=== PATIENT | female | born 1965 | race Caucasian/White ===

== ENCOUNTER 2016-11-16 13:00 | Inpatient (IN) ==
[2016-11-16] MEDS ORDERED: Aspirin 325 MG TABLET PO ONE (13:05)
[2016-11-16] MEDS ORDERED: 0.9 % Sodium Chloride 1,000 ML IVC ONE (13:05)
[2016-11-16 13:38] LABS: Eosinophils % 2.7 %; Hematocrit 39.9 % (35.3-44.9); Hemoglobin 12.9 g/dL (11.5-15.4); Immature Granulocytes % 0.5 % (0-4); Mean Corpuscular HGB Conc 32.3 g/dL (31.6-35.5); Mean Corpuscular Hemoglobin 28.4 pg (28.0-33.3); Mean Corpuscular Volume 87.7 fL (83.0-100.0); Mean Platelet Volume 9.8 fL (9.4-12.4); Platelet Count 234 K/mcL (140-400); Red Blood Count 4.55 M/mcL (3.82-4.97); Red Cell Distribution Width 12.6 % (11.5-14.5); Segmented Neutrophils % 47.1 %
[2016-11-16 13:39] LABS: Basophils % 0.7 %; Eosinophils # 0.1 K/mcL (0.0-0.6); Lymphocytes # 1.7 K/mcL (0.6-4.6); Monocytes # 0.3 K/mcL (0.0-1.3); Neutrophils # 1.9 K/mcL (1.6-8.9)
[2016-11-16 13:43] LABS: Prothrombin Time 11.1 Seconds (9.4-12.1)
[2016-11-16 13:46] LABS: Activated Partial Thrombo Time 33.2 Seconds (26.0-36.0)
[2016-11-16 13:49] LABS: BUN/Creatinine Ratio 12 (6-26); Blood Urea Nitrogen 9 mg/dL (7-20); Calcium 9.4 mg/dL (8.6-10.8); Carbon Dioxide 28 mEq/L (19-29); Chloride 108 mEq/L (98-109); Glucose 100 mg/dL (70-99); Osmolality,Calculated 295 (280-300); Sodium 143 mEq/L (136-145); eGFR For African Americans > 60 (> 60); eGFR For Non-African Americans > 60 (> 60)
--- NOTE | 2016-11-16 14:10 | Emergency Department Note ---
Disposition Clinical Impression: Atrial fibrillation with RVR Disposition: Admitted As Inpatient Condition: Good Time of Disposition: 14:11 Arrhythmia/Palpitations HPI - General Chief Complaint: ED Arrhythmia/Palpitations Stated Complaint: A-Fib Time Seen by Provider: 11/16/16 13:05 Source: patient Limitations: no limitations Nursing Notes Reviewed: Yes Vital Signs Reviewed: Yes - History of Present Illness HPI Narrative: 51-year-old female presents with concerns of weakness and palpitations. Patient states she developed tachycardia this morning was seen by her primary care provider and then an urgent care with an EKG which showed age fibrillation with rapid ventricular rate. Patient denied chest pain throughout her symptoms. Denies fever, chills, nausea, vomiting, diarrhea. No changes in her medications. No history of atrial fibrillation before. - Related Data Home Medications Medication Instructions Recorded Confirmed Loratadine [Claritin] 10 mg PO DAILY 10/07/16 11/16/16 Montelukast [Singulair] 10 mg PO HS 10/07/16 11/16/16 Tramadol HCl [Ultram] 50 mg PO TID PRN 10/07/16 11/16/16 Ranitidine HCl [Zantac] 150 mg PO BID 11/16/16 11/16/16 Tizanidine HCl 4 mg PO TID PRN 11/16/16 11/16/16 Allergies Allergy/AdvReac Type Severity Reaction Status Date / Time Penicillins [PCN] Allergy Itching Verified 11/16/16 13:11 All systems ED: reviewed and negative except as stated. Constitutional: Reports: weakness. Denies: fever, chills ENT ED: Denies: ear pain Cardiovascular: Denies: chest pain, palpitations Respiratory: Denies: cough, dyspnea, wheezes Gastrointestinal: Denies: abdominal pain, nausea, vomiting, diarrhea Genitourinary: Denies: urgency, dysuria Musculoskeletal: Denies: back pain, neck pain Neurological: Denies: headache Psychiatric: Denies: anxiety Past Medical History - Past Medical History Attestation: Yes The following information was validated with the patient. Source: patient Medical history: Reports: asthma, other Psychiatric history: Reports: no psych history [employer] history: Reports: non-contributory - Social History Smoking Status: Former smoker Smokeless Tobacco Status: No Alcohol use: Reports: none Drug use: Reports: none Physical Exam General: Alert and in no acute distress Skin: Warm, dry, intact Head: Normocephalic and atraumatic Neck: Supple, trachea midline and no tenderness Cardiovascular: RRR, no murmur, normal perfusion Respiratory: CTAB, no wheezing, cough, or respiratory distress Musculoskeletal: Normal strength, no tenderness, swelling or deformity GI: Soft, nontender, nondistended. Bowel sounds present Neuro: A&O to person, place, time and situation. No focal deficits noted on exam Psychiatric: cooperative and appropriate mood and affect. - General Limitations: no limitations General appearance: alert, in no apparent distress Course Vital Signs Temperature 98.1 F 11/16/16 13:02 Pulse Rate 86 11/16/16 13:02 Respiratory Rate 18 11/16/16 13:02 Blood Pressure 138/86 11/16/16 13:02 O2 Sat by Pulse Oximetry 97 11/16/16 13:02 Temperature 98.2 F 11/16/16 18:42 Pulse Rate 72 11/16/16 18:42 Respiratory Rate 16 11/16/16 18:42 Blood Pressure 143/79 11/16/16 18:42 O2 Sat by Pulse Oximetry 97 11/16/16 20:44 Oxygen Delivery Oxygen Delivery Room Air Arrhythmia/Palpitations - [facility] Narrative Medical decision making narrative: Patient is in a sinus rhythm by the time of her arrival to the emergency department. Repeat EKG shows normal sinus rhythm with a rate of 82. Patient has no concerns or complaints at this time. Patient has an initial negative troponin. On reevaluation the patient developed chest pain emergency department. Her chest pain in conjunction with her age fibrillation with RVR the patient will be admitted to the hospital for further care and evaluation. - Medical Records Medical records reviewed: Yes I reviewed the patient's medical records. - Lab Data Lab results reviewed: Yes I reviewed the patient's lab results. Result diagrams: 11/16/16 13:28 11/16/16 13:28 Lab Results 11/16/16 11/16/16 11/16/16 Range/Units 13:28 13:28 13:28 WBC 4.1 L (4.3-11.1) K/mcL RBC 4.55 (3.82-4.97) M/mcL Hgb 12.9 (11.5-15.4) g/dL Hct 39.9 (35.3-44.9) % MCV 87.7 (83.0-100.0) fL MCH 28.4 (28.0-33.3) pg MCHC 32.3 (31.6-35.5) g/dL RDW 12.6 (11.5-14.5) % Plt Count 234 (140-400) K/mcL MPV 9.8 (9.4-12.4) fL Immature Gran % 0.5 (0-4) % Seg Neutrophils % 47.1 % Lymphocytes % 41.0 % Monocytes % 8.0 % Eosinophils % 2.7 % Basophils % 0.7 % Neutrophils # 1.9 (1.6-8.9) K/mcL Lymphocytes # 1.7 (0.6-4.6) K/mcL Monocytes # 0.3 (0.0-1.3) K/mcL Eosinophils # 0.1 (0.0-0.6) K/mcL Basophils # 0.0 (0.0-0.2) K/mcL PT 11.1 (9.4-12.1) Seconds INR 1.0 APTT 33.2 (26.0-36.0) Seconds D-Dimer 238 (0-500) ng/mLFEU Sodium 143 (136-145) mEq/L Potassium 4.0 (3.5-4.5) mEq/L Chloride 108 (98-109) mEq/L Carbon Dioxide 28 (19-29) mEq/L BUN 9 (7-20) mg/dL Creatinine 0.76 (0.57-1.11) mg/dL Est GFR ( Amer) > 60 (> 60) Est GFR (Non-Af Amer) > 60 (> 60) BUN/Creatinine Ratio 12 (6-26) Glucose 100 H (70-99) mg/dL Calculated Osmolality 295 (280-300) Calcium 9.4 (8.6-10.8) mg/dL Troponin I (0-0.03) ng/mL TSH 1.119 (0.350-4.840) mcIU/mL Urine Color (Yellow) Urine Clarity (Clear) Urine pH (5.0-8.0) pH Units Ur Specific Roy (1.010-1.025) Urine Protein (Neg-Trace) mg/dL Urine Glucose (UA) (Normal) mg/dL Urine Ketones (Negative) mg/dL Urine Blood (Negative) Urine Nitrite (Negative) Urine Bilirubin (Negative) Urine Urobilinogen (Normal) mg/dL Ur Leukocyte Esterase (Negative) Urine Microscopic RBC (0-3) per hpf Urine Microscopic WBC (0-3) per hpf Ur Squamous Epith Cells (None-Few) per lpf Urine Bacteria (None-Few) per hpf Hyaline Casts (None-Few) per lpf Ur Culture Indicated? (NO) 11/16/16 11/16/16 Range/Units 13:28 14:20 WBC (4.3-11.1) K/mcL RBC (3.82-4.97) M/mcL Hgb (11.5-15.4) g/dL Hct (35.3-44.9) % MCV (83.0-100.0) fL MCH (28.0-33.3) pg MCHC (31.6-35.5) g/dL RDW (11.5-14.5) % Plt Count (140-400) K/mcL MPV (9.4-12.4) fL Immature Gran % (0-4) % Seg Neutrophils % % Lymphocytes % % Monocytes % % Eosinophils % % Basophils % % Neutrophils # (1.6-8.9) K/mcL Lymphocytes # (0.6-4.6) K/mcL Monocytes # (0.0-1.3) K/mcL Eosinophils # (0.0-0.6) K/mcL Basophils # (0.0-0.2) K/mcL PT (9.4-12.1) Seconds INR APTT (26.0-36.0) Seconds D-Dimer (0-500) ng/mLFEU Sodium (136-145) mEq/L Potassium (3.5-4.5) mEq/L Chloride (98-109) mEq/L Carbon Dioxide (19-29) mEq/L BUN (7-20) mg/dL Creatinine (0.57-1.11) mg/dL Est GFR ( Amer) (> 60) Est GFR (Non-Af Amer) (> 60) BUN/Creatinine Ratio (6-26) Glucose (70-99) mg/dL Calculated Osmolality (280-300) Calcium (8.6-10.8) mg/dL Troponin I 0.00 (0-0.03) ng/mL TSH (0.350-4.840) mcIU/mL Urine Color Yellow (Yellow) Urine Clarity Clear (Clear) Urine pH 7.5 (5.0-8.0) pH Units Ur Specific Roy 1.014 (1.010-1.025) Urine Protein Negative (Neg-Trace) mg/dL Urine Glucose (UA) Normal (Normal) mg/dL Urine Ketones Negative (Negative) mg/dL Urine Blood Trace H (Negative) Urine Nitrite Negative (Negative) Urine Bilirubin Negative (Negative) Urine Urobilinogen Normal (Normal) mg/dL Ur Leukocyte Esterase Negative (Negative) Urine Microscopic RBC 3-5 H (0-3) per hpf Urine Microscopic WBC 0-3 (0-3) per hpf Ur Squamous Epith Cells Many H (None-Few) per lpf Urine Bacteria None Seen (None-Few) per hpf Hyaline Casts None Seen (None-Few) per lpf Ur Culture Indicated? NO (NO) - Radiology Data Radiology results reviewed: Yes I reviewed the patient's radiology results. - EKG Data EKG attestation: Yes I reviewed and interpreted this EKG. EKG results narrative: ECG - interpreted by ED physician. Rate 82, normal sinus rhythm, no STEMI. QRS 97, QTC 401
[2016-11-16 14:28] LABS: Bilirubin,Urine Negative (Negative); Blood,Urine Trace (Negative); Clarity,Urine Clear (Clear); Color,Urine Yellow (Yellow); Glucose,Urine (UA) Normal (Normal); Ketones,Urine Negative (Negative); Leukocyte Esterase,Urine Negative (Negative); Nitrite,Urine Negative (Negative); PH,Urine 7.5 pH Units (5.0-8.0); Protein,Urine Negative (Neg-Trace); Specific Gravity,Urine 1.014 (1.010-1.025); Urobilinogen,Urine Normal (Normal)
[2016-11-16 14:30] LABS: Bacteria,Urine None Seen per hpf (None-Few); Hyaline Casts,Urine None Seen per lpf (None-Few); Squamous Epithelial Cell,Urine Many per lpf (None-Few); WBC,Urine 0-3 per hpf (0-3)
[2016-11-16 14:49] LABS: Thyroid Stimulating Hormone 1.119 mcIU/mL (0.350-4.840)
[2016-11-16] MEDS ORDERED: Acetaminophen 325 MG TABLET PO PRN (15:51)
[2016-11-16] MEDS ORDERED: Naloxone 0.4 MG/ML INJ IVP PRN (15:51)
--- NOTE | 2016-11-16 15:51 | Internal Med History&Physical ---
Date of Encounter: 11/16/16 Time of Encounter: 15:49 Assessment and Plan (1) Chest pain, rule out acute myocardial infarction Current visit: Yes Status: Acute 51/F WANG : 0 morbidly obese, has ongoing Restless leg syndrome and persistent back pain. Came to ER with new onset of Afib but converted back to Sinus. Patient was about to go home and then started complain of chest pain. plan Admit as observation telemetry cardiac diet and NPO midnight cycle troponin ASA/Statin/BB Lipid panel in AM ECHO if troponin normal and ECHO with in acceptable range then consider NST if troponin abnormal then consider cardiology evaluation. plan discussed with patient. (2) Atrial fibrillation with RVR Current visit: Yes Status: Acute converted back to Sinus and will observe closely. if she gets back to Afib then consider Cardizem drip. likely etiology for Afib is OHS/DEVANTE plan outpatient Sleep study (3) Morbid obesity with BMI of 40.0-44.9, adult Current visit: Yes Status: Acute may get benefit from bariatric surgery as Outpatient. (4) DVT prophylaxis Current visit: Yes Status: Acute heparin Medical decision making: This patient has a [id number] risk of worsening in spite of being on appropriate medication due to underlying DEVANTE/OHS Internal Medicine - H&P: HPI Chief complaint: chest pain Admitted From: Emergency Dept Plans for Post Hospital Care: Home History of present illness: 51/F PCP: Lilinaa Aguilar PMH : Arthritis, Back pain and restless leg syndrome. HPI : Patient has persistent ongoing weakness and palpitations. This morning patient was concern about the same and was evaluated by her primary care provider. Patient was sent home but her symptoms were worsening. Patient was seen by urgent care and EKG was done which was suggestive of her atrial fibrillation with a rapid ventricular rate. Patient was sent to this hospital emergency room for further evaluation. Patient complains of nocturnal snoring along with daytime headaches. Patient's was at bedside and he confirmed the same findings regarding snoring. Course in the emergency room: Patient was evaluated in the emergency room and it was noted that patient was converted back to sinus rhythm. Patient was about to discharge from emergency room to home and at that point patient claims that she has a left-sided chest pain, nonradiating and localized. Reason for admission: Chest pain to rule out ACS. Family history noncontributory Past Med Surg Social Fam HX - Past Medical History Medical history: asthma, other Psychiatric history: no psych history - Social History Smoking Status: Former smoker Smokeless Tobacco Status: No Alcohol use: none Drug use: none Internal Medicine - H&P: Meds Loratadine [Claritin] 10 mg PO DAILY 10/07/16 [History] Montelukast [Singulair] 10 mg PO HS 10/07/16 [History] Tramadol HCl [Ultram] 50 mg PO TID PRN 10/07/16 [History] Ranitidine HCl [Zantac] 150 mg PO BID 11/16/16 [History] Tizanidine HCl 4 mg PO TID PRN 11/16/16 [History] Allergies Penicillins [PCN] Allergy (Verified 11/16/16 13:11) Itching All Systems PM: A 10-system review of systems was performed and is negative for pertinent findings except as documented above in the HPI. - Constitutional Constitutional: no chills, no fever(s), no night sweats - EENT Eyes: no change in vision, no discharge, no pain, no photophobia Ears: no ear discharge, no ear pain, no tinnitus Nose, mouth and throat: no dysphagia, no nasal discharge, no neck pain, no sore throat - Cardiovascular Cardiovascular ROS IM: chest pain, diaphoresis, irregular heart rhythm, palpitations, no dyspnea, no lightheadedness, no syncope - Respiratory Respiratory: no cough, no dyspnea, no wheezing, no excessive phlegm production - Gastrointestinal Gastrointestinal: no abdominal pain, no diarrhea, no hematemesis, no hematochezia, no melena, no nausea, no vomiting - Genitourinary Genitourinary: no change in urinary stream, no dysuria, no flank pain, no hematuria - Musculoskeletal Musculoskeletal ROS IM: no numbness, no tingling - Integumentary Integumentary IM: no rash, no unusual bruising - Neurological Neurological ROS: no confusion, no convulsions, no focal weakness, no numbness, no tingling, no tremor(s) - Hematologic/Lymphatic Hematologic/Lymphatic: no easy bruising - Constitutional Vitals: Temp Pulse Resp BP Pulse Ox 98.1 F 73 16 147/93 99 11/16/16 13:02 11/16/16 14:23 11/16/16 14:23 11/16/16 14:23 11/16/16 14:23 General appearance: Present: mild distress, A&O X 3, morbidly obese, pleasant, answers questions appropriately - Head Head exam: Present: atraumatic, normocephalic - Eye Eye exam: Present: PERRL, conjuntiva pink, sclera anicteric Pupils: Present: PERRL - Neck Neck exam general surgery: Present: supple, trachea midline. Absent: lymphadenopathy - Respiratory Respiratory exam: Present: CTAB. Absent: accessory muscle use, rales, rhonchi, wheezes - Cardiovascular Cardiovascular exam: Present: RRR, +S1, +S2. Absent: diastolic murmur, gallop, rubs, systolic murmur - GI/Abdominal GI/Abdominal exam: Present: normal bowel sounds, soft, no peritoneal signs. Absent: distended, tenderness - Extremities Exam Extremities exam: Present: warm, radial pulses palpable and symetrical. Absent : calf tenderness, cyanotic, pedal edema - Neurological Exam Neurological exam: Present: CN II-XII intact, oriented X3, no focal deficits. Absent: pronater drift, facial droop, speech deficit - Skin Skin exam: Present: dry, intact Internal Med - H&P Results - Labs CBC & Chem 7: 11/16/16 13:28 11/16/16 13:28 Labs: I have discuss results with the emergency room physician.
[2016-11-16] MEDS: *HR* Heparin 5,000 UNIT/ML VIAL SQ SCH (17:55)
[2016-11-16] MEDS: tiZANidine 4 MG TABLET PO PRN ×2 (17:55→23:24)
[2016-11-16] MEDS: traMADol 50 MG TABLET PO PRN ×2 (17:55→23:24)
[2016-11-17] MEDS: *HR* Heparin 5,000 UNIT/ML VIAL SQ SCH ×2 (05:22→17:00)
[2016-11-17 09:17] LABS: Basophils % 0.9 %; Eosinophils # 0.2 K/mcL (0.0-0.6); Eosinophils % 4.1 %; Hematocrit 37.8 % (35.3-44.9); Hemoglobin 12.1 g/dL (11.5-15.4); Immature Granulocytes % 0.2 % (0-4); Lymphocytes # 2.5 K/mcL (0.6-4.6); Lymphocytes % 54.5 %; Mean Corpuscular Hemoglobin 29.1 pg (28.0-33.3); Mean Corpuscular Volume 90.9 fL (83.0-100.0); Mean Platelet Volume 10.1 fL (9.4-12.4); Monocytes # 0.4 K/mcL (0.0-1.3); Monocytes % 7.8 %; Neutrophils # 1.5 K/mcL (1.6-8.9); Platelet Count 221 K/mcL (140-400); Red Blood Count 4.16 M/mcL (3.82-4.97); Segmented Neutrophils % 32.5 %
[2016-11-17 09:33] LABS: Alanine Aminotransferase 23 Units/L (0-55); Albumin 3.7 g/dL (3.5-5.0); Albumin/Globulin Ratio 1.2 (1.1-2.2); Alkaline Phosphatase 68 Units/L (38-126); Aspartate Amino Transferase 26 Units/L (5-34); BUN/Creatinine Ratio 12 (6-26); Bilirubin,Total 0.5 mg/dL (0.2-1.2); Blood Urea Nitrogen 10 mg/dL (7-20); Calcium 9.2 mg/dL (8.6-10.8); Carbon Dioxide 28 mEq/L (19-29); Chloride 107 mEq/L (98-109); Chol/HDL Ratio 3.7 (0-4.9); Cholesterol 166 mg/dL (< 200); Globulin 3.2 g/dL (2.4-3.5); Glucose 92 mg/dL (70-99); HDL Cholesterol 45 mg/dL (40-59); LDL Cholesterol,Calculated 85 mg/dL (0-99); Osmolality,Calculated 291 (280-300); Phosphorous 3.6 mg/dL (2.3-4.7); Potassium 4.2 mEq/L (3.5-4.5); Sodium 141 mEq/L (136-145); Total Protein 6.9 g/dL (6.0-8.3); Triglycerides 181 mg/dL (< 150); eGFR For African Americans > 60 (> 60); eGFR For Non-African Americans > 60 (> 60)
--- NOTE | 2016-11-17 09:44 | Internal Med Progress Note ---
Addendum entered and electronically signed by Neil Campos DO 11/17/16 15:58: Original Note: <Neil Campos - Last Filed: 11/17/16 14:35> Date of Encounter: 11/17/16 Time of Encounter: 09:39 - Assessment and plan (1) Chest pain, rule out acute myocardial infarction Current Visit: Yes Status: Acute Assessment and plan: Patient had a new onset atrial fibrillation with rapid ventricular response, one of the possible cause could be coronary artery disease, patient also developed chest pain, patient has risk factors of morbid obesity, hyperlipidemia , former smoker, no active chest pain this morning, troponin has been negative 3, patient was agreeable to have a stress test and it would be a 2 day test due to her BMI, echo is pending, continue current medications of aspirin, statin, and beta bethany. (2) Hyperlipidemia Current Visit: Yes Status: Acute Assessment and plan: Lipid panel reviewed and continue statin. Qualifiers: Qualified Code(s): E78.5 - Hyperlipidemia, unspecified (3) Atrial fibrillation with RVR Current Visit: Yes Status: Acute Assessment and plan: Patient flipped back to sinus rhythm in the ER, continue rate control with Lopressor 12.5 mg by mouth twice a day, chadsvasc score is 2 for being female and possible undiagnosed hypertension, patient is currently on aspirin, she states that she wants to think today for anticoagulation option, will address that tomorrow, TSH was normal, echo pending, stress test today and tomorrow. (4) Morbid obesity with BMI of 40.0-44.9, adult Current Visit: Yes Status: Acute Assessment and plan: Diet and lifestyle modifications. (5) DVT prophylaxis Current Visit: Yes Status: Acute Assessment and plan: Heparin subcutaneous twice a day. - Subjective Interval history: patient see and examined. Patient states that she does not have activity chest pain, palpitation or shortness of breath at this time. Patient was agreeable to have a stress test this morning, she states that she can run the treadmill. - Constitutional Vitals: Temp Pulse Resp BP Pulse Ox 97.7 F 59 17 103/60 95 11/17/16 07:37 11/17/16 07:37 11/17/16 07:37 11/17/16 07:37 11/17/16 07:37 General appearance: Present: cooperative, A&O X 3, morbidly obese, pleasant, answers questions appropriately - Head Head exam: Present: atraumatic, normocephalic - Eye Eye exam: Present: PERRL, conjuntiva pink, sclera anicteric Pupils: Present: PERRL - Neck Neck exam general surgery: Present: supple, trachea midline. Absent: lymphadenopathy - Respiratory Respiratory exam: Present: CTAB. Absent: accessory muscle use, rales, rhonchi, wheezes - Cardiovascular Cardiovascular exam: Present: RRR, +S1, +S2. Absent: diastolic murmur, gallop, rubs, systolic murmur - GI/Abdominal GI/Abdominal exam: Present: normal bowel sounds, soft, no peritoneal signs. Absent: distended, tenderness - Extremities Exam Extremities exam: Present: warm, radial pulses palpable and symetrical. Absent : calf tenderness, cyanotic, pedal edema - Neurological Exam Neurological exam: Present: CN II-XII intact, oriented X3, no focal deficits. Absent: pronater drift, facial droop, speech deficit - Skin Skin exam: Present: dry, intact Internal Medicine: Result - Labs CBC & Chem 7: 11/17/16 09:05 11/17/16 09:05 Labs: Short CBC 11/17/16 Range/Units 09:05 WBC 4.6 (4.3-11.1) K/mcL Hgb 12.1 (11.5-15.4) g/dL Hct 37.8 (35.3-44.9) % Plt Count 221 (140-400) K/mcL Neutrophils # 1.5 L (1.6-8.9) K/mcL BMP 11/17/16 09:05 Sodium 141 Potassium 4.2 Chloride 107 Carbon Dioxide 28 BUN 10 Creatinine 0.83 Glucose 92 Calcium 9.2 Cardiac Enzymes 11/16/16 11/17/16 Range/Units 19:13 00:49 Troponin I 0.00 0.00 (0-0.03) ng/mL Liver Function 11/17/16 Range/Units 09:05 Total Bilirubin 0.5 (0.2-1.2) mg/dL AST 26 (5-34) Units/L ALT 23 (0-55) Units/L Alkaline Phosphatase 68 (38-126) Units/L Albumin 3.7 (3.5-5.0) g/dL - ABG Interpretation ABG results: PT/INR, D-dimer PT 11.1 Seconds (9.4-12.1) 11/16/16 13:28 D-Dimer 238 ng/mLFEU (0-500) 11/16/16 13:28 Consult Discharge Plan - Plan Referrals: Liliana Cruz, RADIOLOGIC TECHNICIAN [Primary Care Provider] - <Reji Thurston - Last Filed: 11/17/16 18:47> Date of Encounter: 11/17/16 - Assessment and plan (1) Chest pain, rule out acute myocardial infarction Current Visit: Yes Status: Acute (2) Atrial fibrillation with RVR Current Visit: Yes Status: Acute (3) Morbid obesity with BMI of 40.0-44.9, adult Current Visit: Yes Status: Acute (4) DVT prophylaxis Current Visit: Yes Status: Acute - Constitutional Vitals: Temp Pulse Resp BP Pulse Ox 98.0 F 64 16 157/82 95 11/17/16 15:26 11/17/16 15:26 11/17/16 15:26 11/17/16 15:26 11/17/16 15:26 Internal Medicine: Result - Labs CBC & Chem 7: 11/17/16 09:05 11/17/16 09:05 Labs: Short CBC 11/17/16 Range/Units 09:05 WBC 4.6 (4.3-11.1) K/mcL Hgb 12.1 (11.5-15.4) g/dL Hct 37.8 (35.3-44.9) % Plt Count 221 (140-400) K/mcL Neutrophils # 1.5 L (1.6-8.9) K/mcL BMP 11/17/16 09:05 Sodium 141 Potassium 4.2 Chloride 107 Carbon Dioxide 28 BUN 10 Creatinine 0.83 Glucose 92 Calcium 9.2 Cardiac Enzymes 11/16/16 11/17/16 11/17/16 Range/Units 19:13 00:49 09:05 Troponin I 0.00 0.00 0.00 (0-0.03) ng/mL Liver Function 11/17/16 Range/Units 09:05 Total Bilirubin 0.5 (0.2-1.2) mg/dL AST 26 (5-34) Units/L ALT 23 (0-55) Units/L Alkaline Phosphatase 68 (38-126) Units/L Albumin 3.7 (3.5-5.0) g/dL - ABG Interpretation ABG results: PT/INR, D-dimer PT 11.1 Seconds (9.4-12.1) 11/16/16 13:28 D-Dimer 238 ng/mLFEU (0-500) 11/16/16 13:28 - Attending Attestation I examined this patient and my medical decision-making was reviewed with the LODGE OFFICER/PA/Advanced Practice Nurse/Resident Physician. I agree with the documented findings, disposition and treatment plan as described except to the extent set forth below.
[2016-11-17] MEDS ORDERED: Regadenoson 0.4 MG/5 ML SYRINGE IVP ONE (09:51)
[2016-11-17 10:02] LABS: Hemoglobin A1C 5.4 %
[2016-11-17] MEDS: Aspirin Enteric Coated 81 MG Tablet PO SCH (12:43)
[2016-11-17] MEDS: traMADol 50 MG TABLET PO PRN ×2 (12:44→17:00)
--- NOTE | 2016-11-17 14:21 | Electrocardiograph Report ---
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
--- NOTE | 2016-11-17 14:21 | Electrocardiograph Report ---
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
[2016-11-17] MEDS: tiZANidine 4 MG TABLET PO PRN (17:00)
[2016-11-18] MEDS: traMADol 50 MG TABLET PO PRN ×3 (01:23→16:47)
[2016-11-18] MEDS: tiZANidine 4 MG TABLET PO PRN ×3 (01:23→16:47)
[2016-11-18] MEDS: *HR* Heparin 5,000 UNIT/ML VIAL SQ SCH ×2 (05:44→16:47)
[2016-11-18] MEDS: Aspirin Enteric Coated 81 MG Tablet PO SCH (09:15)
--- NOTE | 2016-11-18 12:36 | Nuclear Medicine Stress Report ---
Exercise Nuclear Stress 2 day Name: Linsey Galloway Date of Study: 11/17/2016 Date: 1965 Ht: 67.0 in Medical Record#: [id number] Age: 51 Wt: 260.0 lb Gender: Female Order #: [id number] Location: [facility] Room: [facility] Supervising Provider: Elvis Maher CNP Reading Physician: Rusty Castillo MD, [facility] Ordering Physician: Holly Lauren CNP Primary Care Physician: Liliana Cruz NP Stress Technologist: Jesus Rosa, TUBE TEST TECHNICIAN, CCT Engine Turner: Duoglas Staton Indications: Irregular heartbeat Impression: The exercise capacity was average. Exercise ECG is borderline for ischemia in the inferior leads. Gated LVEF > 70%. Small-medium sized, mild-moderate intensity, predominantly reversible perfusion defect in the mid-apical anterior wall and mid anteroseptum. Findings are consistent with reversible myocardial ischemia. Recommend cardiology consultation. Ordering provider notified of results via [employer] message. History: Hypercholesteremia Stress Test Summary: Stress Test Type: Treadmill Protocol: Patrice Baseline Information: Initial Heart Rate: 68 Blood Pressure: 104/70 Stress Information: Stress Time: 6 min 32 sec Test Terminated Due to (primary): Dyspnea Maximum Blood Pressure: 130/76 Maximum Heart Rate: 146 Percent Maximum Heart Rate Achieved: 86 Double Product: 18,980 METS Reached: 7 Nuclear Summary: SPECT myocardial perfusion imaging using Tc99m Sestamibi given intravenously was performed at rest and following cardiac stress testing. The resting images were obtained following initial dose of 35.3 mCi. Following stress an additional dose of 30.3 mCi was given at peak exercise or 30 seconds post regadenoson infusion. Findings: Stress Note * Resting ECG demonstrated sinus rhythm with 1st degree AV block, incomplete RBBB, poor r-wave progression. * No baseline arrhythmias were noted. * The exercise capacity was average. * Patient had no chest pain during stress. * A couple PVCs were noted during exercise. * Exercise ECG is borderline for ischemia in the inferior leads. Hemodynamic responses * Normal hemodynamic responses to exercise. Study Quality * Study quality is good. Gated EF > 70% * Gated LVEF > 70%. Left Ventricle * The left ventricle is not dilated. * Small-medium sized, mild-moderate intensity, predominantly reversible perfusion defect in the mid-apical anterior wall and mid anteroseptum. Findings are consistent with reversible myocardial ischemia. * All other segmental perfusion normal in rest and stress. TID * No evidence of transient ischemic dilatation. Updated by Rusty Castillo MD, [facility] on 11/18/2016 12:28:57 PM electronically signed on 11/18/2016 12:29:43 PM with status of Final
--- NOTE | 2016-11-18 14:23 | Cardiology Consult Note ---
<Elvis Maher R - Last Filed: 11/18/16 14:57> Date of Encounter: 11/18/16 Time of Encounter: 14:17 Assessment and Plan (1) Abnormal stress test Current Visit: Yes Status: Acute Stress test today shows small-moderate sized, mild-moderate intensity reversible perfusion defect in mid-apical anterior wall and mid anteroseptum consistent with ischemia. Gated EF >70%. Echo preserved EF. Single episode of chest pain in ED, since resolved without recurrence. Troponins negative x 3. [facility] 07/22/14 with mild-moderate 30-40% mid LAD stenosis. Stress test concerning for worsening LAD stenosis. Recommend [facility]. R/B/A discussed. Pt agrees to proceed with [facility]. She has eaten a full lunch, so will plan for [facility] tomorrow. ASA, Statin, BB. (2) PAF (paroxysmal atrial fibrillation) Current Visit: Yes Status: Acute New onset A-Fib RVR on presentation, since converted to SR. Started on low dose BB. Echo shows EF 65%, moderate diastolic dysfunction, mild-moderately dilated left atrium. Reports snoring, suspect DEVANTE. Recommend outpt sleep study. K 4.2, TSH 1.119. Check mag. CHADSVASC score 2 or 3 (Female, CAD, possible HTN). Would recommend jail anticoagulation. Will marshall check NOAC with plans to start anticoagulation after [facility] tomorrow for abnormal stress test as above. (3) CAD (coronary artery disease) Current Visit: Yes Status: Acute Mild-moderate 30-40% mid LAD stenosis on [facility] 06/2014. ASA, Statin, BB. Qualifiers: Coronary Disease-Associated Artery/Lesion type: lummi artery [place] vs. transplanted heart: lummi heart Associated angina: angina presence unspecified Qualified Code(s): I25.10 - Atherosclerotic heart disease of lummi coronary artery without angina pectoris Discussion w patient/family: The assessment and plan as outlined above was discussed with the patient and/or family members who expressed understanding and agreement. All questions were answered. Thank you for involving us in the care of your patient. Please call with any questions. I will discuss all the above with Dr. Meraz and make changes as necessary. History of Present Illness Consult date: 11/18/16 Requesting physician: Reji Thurston Consult reason: A-Fib, abnormal stress test Chief complaint: Palpitations, chest pain History of present illness: Ms. Galloway is a 51 year old female presented to ED from Urgent care for A-Fib with RVR. She reports symptoms of weakness and palpitations started yesterday morning at 6:30AM. While in the ED she had episode of chest pressure that radiated across her chest and became more severe, eventually subsiding on its own. She converted back to sinus rhythm. Troponins negative, stress test and echo were ordered. Echo shows EF 65%, moderate diastolic dysfunction, mild- moderately dilated left atrium. Stress test gated EF >70%, small-moderate sized , mild-moderate intensity reversible perfusion defect in mid-apical anterior wall and mid anteroseptum consistent with ischemia. Pt had a LHC 07/22/14 with mild-moderate 30-40% mid LAD stenosis. Pt currently denies any cardiac symptoms , stating she is feeling better. Past Med Surg Social Fam HX - Past Medical History Medical history: asthma, coronary artery disease, other Psychiatric history: no psych history - Social History Smoking Status: Former smoker Smokeless Tobacco Status: No Alcohol use: none Drug use: none - Family History Mother Living Status: Hx Family Cardiac Disorders: Yes (CHF MD) Hx Family Endocrine Disorder: Yes (type 1 DM) Father Living Status: Hx Family Cardiac Disorders: Yes (triple bypass, MD) Medications and Allergies Loratadine [Claritin] 10 mg PO DAILY 10/07/16 [History] Montelukast [Singulair] 10 mg PO HS 10/07/16 [History] Tramadol HCl [Ultram] 50 mg PO TID PRN 10/07/16 [History] Ranitidine HCl [Zantac] 150 mg PO BID 11/16/16 [History] Tizanidine HCl 4 mg PO TID PRN 11/16/16 [History] Allergies Penicillins [PCN] Allergy (Verified 11/16/16 13:11) Itching All Systems Review: A 10-system review of systems was performed and is negative for pertinent findings except as documented above in the HPI. - Constitutional Constitutional: snoring, weakness - Cardiovascular Cardiovascular: as per HPI, chest pain at rest, irregular heart rhythm, palpitations, rapid heart rate Physical Examination Vital Signs, Last 4 Hours Temp Pulse Resp BP Pulse Ox 11/18/16 10:50 98.3 F 68 16 151/64 94 Vital Signs Temp Pulse Resp BP Pulse Ox 11/18/16 10:50 98.3 F 68 16 151/64 94 11/18/16 07:07 98.1 F 69 14 112/71 94 11/18/16 04:05 98.1 F 68 16 116/63 95 11/18/16 00:20 97.7 F 61 16 120/64 93 11/17/16 19:45 97.6 F 64 15 133/73 97 11/17/16 15:26 98.0 F 64 16 157/82 95 Intake and Output 11/17/16 11/18/16 11/18/16 23:59 07:59 15:59 Intake Total 500 / 500 560 / 560 Output Total 1500 / 1500 930 / 930 1000 / 1000 Balance -1500 / -1500 -430 / -430 -440 / -440 Intake: Oral 500 / 500 560 / 560 Output: Urine 1500 / 1500 930 / 930 1000 / 1000 Other: Meal Lunch Percent of Meal Consumed 95% Weight 118.841 kg Patient Weight 11/18/16 23:59 Weight 118.841 kg General: Conversant, No Apparent Distress HEENT: Atraumatic, Normocephaly, Mucus Membranes Moist Neck: No JVD, Normal carotid pulses Cardiac: Reg Rate and Rhythm, Normal S1 and S2, No Murmur Lungs: Normal Breath Sounds, No Wheeze, Rales, Rhonchi Neuro: Alert and responsive, No focal deficits noted Abdomen: Soft, Non-Tender Skin: No rashes noted on visualized skin Musculoskeletal: No Chest Wall Tenderness Extremities: No Clubbing, No Cyanosis, No Edema, Normal Pulses Results 11/17/16 09:05 11/17/16 09:05 Active Medications Acetaminophen (Tylenol) 650 mg PO Q6HR PRN PRN Reason: Mild Pain (1-3) Stop: 05/18/17 15:52 Last Admin: 11/17/16 17:00 Dose: 650 mg Aspirin (Aspirin Ec) 81 mg PO DAILY ANGY Stop: 05/19/17 09:01 Last Admin: 11/18/16 09:15 Dose: 81 mg Atorvastatin Calcium (Lipitor) 20 mg PO HS ANGY Stop: 05/18/17 21:01 Last Admin: 11/17/16 21:39 Dose: 20 mg Heparin Sodium (Porcine) (Heparin) 5,000 unit SQ Q12HCO [facility] Stop: 05/18/17 18:01 Last Admin: 11/18/16 05:44 Dose: 5,000 unit Metoprolol Tartrate (Lopressor) 12.5 mg PO BID ANGY Stop: 05/18/17 21:01 Last Admin: 11/18/16 09:14 Dose: 12.5 mg Montelukast Sodium (Singulair) 10 mg PO HS [facility] Stop: 05/18/17 21:01 Last Admin: 11/17/16 21:39 Dose: 10 mg Naloxone HCl (Narcan) 0.4 mg IVP Q2MIN PRN PRN Reason: Opioid Reversal Stop: 05/18/17 15:52 Omeprazole (Prilosec) 20 mg PO DAILY@0730 ANGY PRN Reason: Protocol Stop: 05/19/17 07:31 Last Admin: 11/18/16 05:44 Dose: 20 mg Tizanidine HCl (Zanaflex) 4 mg PO TID PRN PRN Reason: Muscle Pain Stop: 05/18/17 15:56 Last Admin: 11/18/16 09:15 Dose: 4 mg Tramadol HCl (Ultram) 50 mg PO TID PRN PRN Reason: mild to moderate pain Stop: 05/18/17 15:56 Last Admin: 11/18/16 09:14 Dose: 50 mg - Imaging and Cardiology Stress Test: report reviewed Echo: report reviewed Cardiac cath: report reviewed - EKG Interpretation EKG results cardiology: personally reviewed (A-Fib RVR, rate 142 SR on subsequent), other (24 hour tele AVG HR 66, SR) Consult Discharge Plan - Plan Referrals: Liilana Cruz, FIELD CANE SCALER [Primary Care Provider] - <Silva Meraz - Last Filed: 11/18/16 16:14> Date of Encounter: 11/18/16 Assessment and Plan Discussion w patient/family: The assessment and plan as outlined above was discussed with the patient and/or family members who expressed understanding and agreement. All questions were answered. Thank you for involving us in the care of your patient. Please call with any questions. History of Present Illness History of present illness: Ms. Galloway is a 51 year old female All Systems Review: A 10-system review of systems was performed and is negative for pertinent findings except as documented above in the HPI. Physical Examination Vital Signs, Last 4 Hours Temp Pulse Resp BP Pulse Ox 11/18/16 15:33 98.8 F 68 16 135/48 95 Results 11/17/16 09:05 11/17/16 09:05 - Attending Attestation I examined this patient and my medical decision-making was reviewed with the RN SUPPORT SERVICES/PA/Advanced Practice Nurse/Resident Physician. I agree with the documented findings, disposition and treatment plan. Ms. Galloway presented with palpitations but had an episode of chest pressure in ER. Was found to be in AF RVR and has since converted to NSR started on BB. Echo demonstrates normal LV/RV function. Suspect DEVANTE as a cause - consider outpatient sleep study. Elevated CHADSVASC score - anticoagulation would be recommened. However, she also had a stress test today demonstrating mild to moderate intensity reversible defect in the LAD territory. She had a cath in 2014 demonstrating 30-40% mLAD disease. We have recommended pursuing a LHC tomorrow (ate a full lunch) and will decide upon anticoagulation for AF after results return. The R/B/A of LHC were discussed. Patient expressed understanding and agreement to proceed.
--- NOTE | 2016-11-18 15:59 | Internal Med Progress Note ---
<Too Waters - Last Filed: 11/18/16 15:57> Date of Encounter: 11/18/16 Time of Encounter: 10:10 - Assessment and plan (1) Chest pain, rule out acute myocardial infarction Current Visit: Yes Status: Acute Assessment and plan: Patient had a new onset atrial fibrillation with rapid ventricular response, one of the possible cause could be coronary artery disease, patient also developed chest pain, patient has risk factors of morbid obesity, hyperlipidemia , and being a former smoker. Troponin has been negative 3. Patient had stress test performed that showed reversible ischemia. Cardiology has been consulted due to concerning stress findings Plan for cardiac catheterization to further evaluate reversible ischemia Continue aspirin Continue atorvastatin Continue metoprolol tartrate (2) Atrial fibrillation with RVR Current Visit: Yes Status: Acute Assessment and plan: Patient flipped back to sinus rhythm in the ER. CHADVASC score is 2 for being female and possible hypertension, patient is currently on aspirin, she states that she wants to think today for anticoagulation option, will address that tomorrow, TSH was normal, echo pending. Stress as performed showed reversible ischemia. continue rate control with Lopressor 12.5 mg by mouth twice a day (3) Hyperlipidemia Current Visit: Yes Status: Acute Assessment and plan: Lipid panel reviewed and continue atorvastatin 20 mg by mouth at bedtime Qualifiers: Qualified Code(s): E78.5 - Hyperlipidemia, unspecified (4) Morbid obesity with BMI of 40.0-44.9, adult Current Visit: Yes Status: Acute (5) DVT prophylaxis Current Visit: Yes Status: Acute Assessment and plan: 5000 units Heparin subcutaneous twice a day. - Subjective Interval history: Patient seen and examined today post stress test. She is comfortable with no concerns/complaints at this time. Is slightly anxious regarding results of stress test. - Constitutional Vitals: Temp Pulse Resp BP Pulse Ox 98.8 F 68 16 135/48 95 11/18/16 15:33 11/18/16 15:33 11/18/16 15:33 11/18/16 15:33 11/18/16 15:33 General appearance: Present: cooperative, A&O X 3, morbidly obese, pleasant, answers questions appropriately Exam: General: Cooperative, pleasant, no acute distress, alert and oriented 3, answers questions appropriately HEENT: Normocephalic, atraumatic, neck supple, trachea midline, Conjunctiva pink , sclera anicteric, EOMI Respiratory: No accessory muscle usage, clear to auscultation bilaterally, no wheezes/rhonchi/rales appreciated Cardiovascular: Regular rate and rhythm, S1 and S2 present, no murmurs/rubs/ gallops/clicks appreciated GI/abdominal: Nondistended, nontender, soft, normal bowel sounds, no peritoneal signs Extremities: No calf tenderness, noncyanotic, no pedal edema appreciated, warm, lower extremity pulses palpable and symmetrical Neurological: Alert and oriented 3, no facial droop, no focal deficits Skin: Dry, intact, normal color Internal Medicine: Result - Labs CBC & Chem 7: 11/17/16 09:05 11/17/16 09:05 - ABG Interpretation ABG results: PT/INR, D-dimer PT 11.1 Seconds (9.4-12.1) 11/16/16 13:28 D-Dimer 238 ng/mLFEU (0-500) 11/16/16 13:28 Consult Discharge Plan - Plan Referrals: Liliana Cruz, SSAS DEVELOPER [Primary Care Provider] - <Reji Thurston - Last Filed: 11/18/16 17:23> Date of Encounter: 11/18/16 - Assessment and plan (1) Chest pain, rule out acute myocardial infarction Current Visit: Yes Status: Acute (2) Atrial fibrillation with RVR Current Visit: Yes Status: Acute (3) Morbid obesity with BMI of 40.0-44.9, adult Current Visit: Yes Status: Acute (4) DVT prophylaxis Current Visit: Yes Status: Acute - Constitutional Vitals: Temp Pulse Resp BP Pulse Ox 98.8 F 68 16 135/48 95 11/18/16 15:33 11/18/16 15:33 11/18/16 15:33 11/18/16 15:33 11/18/16 15:33 Internal Medicine: Result - Labs CBC & Chem 7: 11/17/16 09:05 11/17/16 09:05 - ABG Interpretation ABG results: PT/INR, D-dimer PT 11.1 Seconds (9.4-12.1) 11/16/16 13:28 D-Dimer 238 ng/mLFEU (0-500) 11/16/16 13:28 - Attending Attestation I examined this patient and my medical decision-making was reviewed with the FLOWERS SALESPERSON/PA/Advanced Practice Nurse/Resident Physician. I agree with the documented findings, disposition and treatment plan as described except to the extent set forth below. Patient's stress test is positive. She will be able going for cardiac catheterization tomorrow. Patient needs to stay in hospital and will change status as inpatient.
[2016-11-19] MEDS: traMADol 50 MG TABLET PO PRN ×3 (04:13→16:48)
[2016-11-19 04:29] LABS: Basophils % 0.3 %; Eosinophils # 0.2 K/mcL (0.0-0.6); Eosinophils % 2.4 %; Hematocrit 35.8 % (35.3-44.9); Hemoglobin 11.7 g/dL (11.5-15.4); Immature Granulocytes % 0.5 % (0-4); Lymphocytes # 2.2 K/mcL (0.6-4.6); Lymphocytes % 25.7 %; Mean Corpuscular HGB Conc 32.7 g/dL (31.6-35.5); Mean Corpuscular Hemoglobin 29.3 pg (28.0-33.3); Mean Corpuscular Volume 89.5 fL (83.0-100.0); Mean Platelet Volume 10.5 fL (9.4-12.4); Monocytes # 0.6 K/mcL (0.0-1.3); Monocytes % 6.7 %; Neutrophils # 5.5 K/mcL (1.6-8.9); Platelet Count 225 K/mcL (140-400); Red Cell Distribution Width 12.8 % (11.5-14.5); Segmented Neutrophils % 64.4 %
[2016-11-19 04:44] LABS: BUN/Creatinine Ratio 13 (6-26); Blood Urea Nitrogen 10 mg/dL (7-20); Carbon Dioxide 28 mEq/L (19-29); Chloride 105 mEq/L (98-109); Glucose 103 mg/dL (70-99); Osmolality,Calculated 291 (280-300); Potassium 3.9 mEq/L (3.5-4.5); Sodium 141 mEq/L (136-145); eGFR For African Americans > 60 (> 60); eGFR For Non-African Americans > 60 (> 60)
[2016-11-19] MEDS: tiZANidine 4 MG TABLET PO PRN ×3 (05:31→16:49)
[2016-11-19] MEDS: *HR* Heparin 5,000 UNIT/ML VIAL SQ SCH ×2 (05:31→18:29)
--- NOTE | 2016-11-19 07:26 | Internal Med Progress Note ---
<Too Waters - Last Filed: 11/19/16 11:49> Date of Encounter: 11/19/16 Time of Encounter: 07:05 - Assessment and plan (1) Chest pain, rule out acute myocardial infarction Current Visit: Yes Status: Acute Assessment and plan: Patient had a new onset atrial fibrillation with rapid ventricular response, one of the possible cause could be coronary artery disease, patient also developed chest pain, patient has risk factors of morbid obesity, hyperlipidemia , and being a former smoker. Troponin has been negative 3. Patient had stress test performed that showed reversible ischemia. Cardiology has been consulted due to concerning stress findings Plan for cardiac catheterization to further evaluate reversible ischemia Continue aspirin, 81 mg daily Continue atorvastatin, 20 mg daily Continue metoprolol tartrate, 12.5 mg twice a day (2) Atrial fibrillation with RVR Current Visit: Yes Status: Acute Assessment and plan: Patient flipped back to sinus rhythm in the ER. CHADVASC score is 1 for being female, patient is currently on aspirin. TSH was normal, echo pending. Stress as performed showed reversible ischemia. continue rate control with Lopressor 12.5 mg by mouth twice a day Patient will need to remain on by mouth aspirin going forward due to CAD (3) Hyperlipidemia Current Visit: Yes Status: Acute Assessment and plan: Lipid panel reviewed and continue atorvastatin 20 mg by mouth at bedtime Qualifiers: Hyperlipidemia type: unspecified Qualified Code(s): E78.5 - Hyperlipidemia , unspecified (4) Morbid obesity with BMI of 40.0-44.9, adult Current Visit: Yes Status: Acute Assessment and plan: Diet and lifestyle modifications. (5) DVT prophylaxis Current Visit: Yes Status: Acute Assessment and plan: 5000 units Heparin subcutaneous twice a day. - Subjective Interval history: Patient found to have abnormal stress test, with reversible ischemia seen. Scheduled for cardiac catheterization later today. She is comfortable this morning without immediate concerns/complaints. She has no complaint of chest pain, shortness of breath, diaphoresis, nausea or vomiting. - Constitutional Vitals: Temp Pulse Resp BP Pulse Ox 98.5 F 70 15 126/72 91 11/19/16 06:34 11/19/16 06:34 11/19/16 06:34 11/19/16 06:34 11/19/16 06:34 General appearance: Present: cooperative, A&O X 3, morbidly obese, pleasant, answers questions appropriately Exam: General: Cooperative, pleasant, no acute distress, alert and oriented 3, answers questions appropriately HEENT: Normocephalic, atraumatic, neck supple, trachea midline, Conjunctiva pink , sclera anicteric Respiratory: No accessory muscle usage, clear to auscultation bilaterally, no wheezes/rhonchi/rales appreciated Cardiovascular: Regular rate and rhythm, S1 and S2 present, no murmurs/rubs/ gallops/clicks appreciated GI/abdominal: Nondistended, nontender, soft, normal bowel sounds, no peritoneal signs Extremities: No calf tenderness, noncyanotic, no pedal edema appreciated, warm, lower extremity pulses palpable and symmetrical Neurological: Alert and oriented 3, no facial droop, no focal deficits Skin: Dry, intact, normal color Internal Medicine: Result - Labs CBC & Chem 7: 11/19/16 04:10 11/19/16 04:10 Labs: Short CBC 11/19/16 Range/Units 04:10 WBC 8.6 D (4.3-11.1) K/mcL Hgb 11.7 (11.5-15.4) g/dL Hct 35.8 (35.3-44.9) % Plt Count 225 (140-400) K/mcL Neutrophils # 5.5 (1.6-8.9) K/mcL BMP 11/19/16 04:10 Sodium 141 Potassium 3.9 Chloride 105 Carbon Dioxide 28 BUN 10 Creatinine 0.79 Glucose 103 H Calcium 9.0 - ABG Interpretation ABG results: PT/INR, D-dimer PT 11.1 Seconds (9.4-12.1) 11/16/16 13:28 D-Dimer 238 ng/mLFEU (0-500) 11/16/16 13:28 Consult Discharge Plan - Plan Referrals: Liliana Cruz, RESERVATIONS MANAGER [Primary Care Provider] - <Reji Thurston - Last Filed: 11/19/16 16:22> Date of Encounter: 11/19/16 - Assessment and plan (1) Chest pain, rule out acute myocardial infarction Current Visit: Yes Status: Acute (2) Atrial fibrillation with RVR Current Visit: Yes Status: Acute (3) Morbid obesity with BMI of 40.0-44.9, adult Current Visit: Yes Status: Acute (4) DVT prophylaxis Current Visit: Yes Status: Acute - Constitutional Vitals: Temp Pulse Resp BP Pulse Ox 98.1 F 63 18 92/57 96 11/19/16 15:40 11/19/16 15:40 11/19/16 15:40 11/19/16 15:40 11/19/16 15:40 Internal Medicine: Result - Labs CBC & Chem 7: 11/19/16 04:10 11/19/16 04:10 Labs: Short CBC 11/19/16 Range/Units 04:10 WBC 8.6 D (4.3-11.1) K/mcL Hgb 11.7 (11.5-15.4) g/dL Hct 35.8 (35.3-44.9) % Plt Count 225 (140-400) K/mcL Neutrophils # 5.5 (1.6-8.9) K/mcL BMP 11/19/16 04:10 Sodium 141 Potassium 3.9 Chloride 105 Carbon Dioxide 28 BUN 10 Creatinine 0.79 Glucose 103 H Calcium 9.0 - ABG Interpretation ABG results: PT/INR, D-dimer PT 11.1 Seconds (9.4-12.1) 11/16/16 13:28 D-Dimer 238 ng/mLFEU (0-500) 11/16/16 13:28 - Attending Attestation I examined this patient and my medical decision-making was reviewed with the IMPREGNATOR HELPER/PA/Advanced Practice Nurse/Resident Physician. I agree with the documented findings, disposition and treatment plan as described except to the extent set forth below. Cardiac catheterization did not reveal any major blockages. Novel anticoagulation for her paroxysmal atrial fibrillation. Home tomorrow.
[2016-11-19] MEDS: Aspirin Enteric Coated 81 MG Tablet PO SCH (08:20)
[2016-11-19] MEDS: Sennosides/Docusate Sodium TABLET PO PRN ×2 (08:22→16:48)
[2016-11-19] MEDS ORDERED: *HR* Midazolam HCl 2 MG/2 ML VIAL ONE ×2 (10:31→11:32)
[2016-11-19] MEDS ORDERED: Heparin 1,000 UNITS/500 mL NS 500 ML ONE (10:32)
[2016-11-19] MEDS ORDERED: *HR* FentaNYL (PF) 100 MCG/2 ML VIAL ONE (10:32)
[2016-11-19] MEDS ORDERED: 0.9 % Sodium Chloride 2,000 ML ONE (10:32)
[2016-11-19] MEDS ORDERED: Verapamil 5 MG/2 ML VIAL ONE (10:32)
[2016-11-19] MEDS ORDERED: *HR* Heparin 10,000 UNIT/10 ML VIAL ONE (10:32)
[2016-11-19] MEDS ORDERED: Nitroglycerin 1,000 MCG/10 ML VIAL IV ONE (10:33)
--- NOTE | 2016-11-19 10:56 | Pre-Sedation Evaluation ---
Pre-sedation evaluation - Pre-sedation checklist Date of procedure: 11/19/16 Recent Vitals: Last Vital Signs Temp 98.5 F 11/19/16 06:34 Pulse 70 11/19/16 06:34 Resp 15 11/19/16 06:34 BP 126/72 11/19/16 06:34 Pulse Ox 91 11/19/16 06:34 H&P (including ROS) documented in medical record: Yes Previous reaction to sedatives/anesthetics: No Dietary Status: NPO after Midnight Airway Assessment: Patient can open mouth completely, TMJ function normal, Micrognathia (under-bite, receding chin) absent, Neck with adequate range of motion Dentition: No loose teeth or bridges Possible difficult airway: Yes If Yes;: Morbid obesity ASA Classification *see protocol: CLASS II-Mild systemic disease Plan of Care: Pt appropriate candidate for procedure/moderate/conscious sedation , Risks/benefits of procedure/sedation discussed w/ patient/family
[2016-11-19] MEDS ORDERED: *HR* Adenosine 6 MG/2 ML VIAL IVP ONE (11:28)
--- NOTE | 2016-11-19 11:53 | Invasive Diagnostic Lab Proc ---
Name: Linsey Galloway Date of Study: 11/19/2016 Date: 1965 Ht: 66.9in Medical Record#: [id number] Age: 51 Wt: 263.67lb Gender: Female BSA: 2.27 Order #: [id number] BMI: 41.38 Physicians Procedure Physician: Valeri Guerrier MD, [facility] Referring MD: Referring MD: Staff Name Position Time In Sites, Fidelia RT (R) Monitor 10:45 AM Eva Rodarte RT (R) Scrub 10:45 AM Cathy Bobby RN Separator Tender 10:45 AM Indications Indication Abnormal Test - Stress Procedures Performed Procedure L HRT ARTERY/VENTRICLE ANGIO IV Doppler BLD Flow 1st Vessel Pre-Procedure Checklist Informed consent is complete signed and on chart. H\\T\\P is on chart. ID band is on and ID verified with patient. Patient NPO for procedure The procedure was described for the patient and questions were answered. Blood Pressure: 128/73 ECG is on chart. Rhythm: NSR Plan of Care Patient will tolerate the procedure without complications. Adequate level of comfort will be maintained. Hemodynamics will remain stable Patient will recover from procedure without complications. Respiratory function will be maintained. Cardiac rhythm will remain stable. Patient temperature will be maintained. Patient and/or family have verbalized understanding of the procedure. Patient Education Chief Complaint/Reason for Test: Cardiac Cath Developmental Category: Adult (18-64 years) Developmentally Appropriate for Age: Yes Learning Barriers: None Education Needs: Procedure Education Method: Verbal Information Taught: Cardiac Cath Educational Evaluation: Able to repeat information Intravenous Access Time IV Size Location DC'd Fluid/Drip Rate Units RN 10:33 AM 20g 1 1/4" Patent On Arrival Lt Hand Allergies Penicillins Vital Signs Time BP (mmHg) HR (bpm) O2 Sat. RR (bpm) LOC 11:04 AM 128 / 73 64 95 % 16 5 = Fully awake and oriented or at pre-proc level 11:01 AM 125 / 75 64 97 % 11:06 AM 128 / 73 65 97 % 13 11:11 AM 114 / 67 59 96 % 16 11:16 AM 123 / 60 72 96 % 16 11:21 AM 108 / 61 71 94 % 12 11:26 AM 120 / 68 68 96 % 24 11:31 AM 117 / 75 70 97 % 13 11:36 AM 119 / 68 63 97 % 24 11:41 AM 116 / 75 66 99 % 15 Procedural Medications Time Medication Dose Units Method Given By 11:03 AM Oxygen 2 L/min nasal cannula Cathy Bobby RN 11:04 AM Versed 2 mg Intravenous Cathy Bobby RN 11:04 AM Fentanyl 50 mcg Intravenous Cathy Bobby RN 11:11 AM Lidocaine 2% 0.5 ml Subcutaneous Valeri Guerrier MD, [facility] 11:13 AM Heparin 4000 units Nitroglycerin 200 mcg Verapamil 2.5 mg Intraarterial Valeri Guerrier MD, [facility] 11:31 AM Fentanyl 25 mcg Intravenous Cathy Bobby RN 11:32 AM Versed 1 mg Intravenous Cathy Bobby RN 11:37 AM Adenosine 360 mcg Intracoronary Valeri Guerrier MD, [facility] 11:38 AM Adenosine 400 mcg Intracoronary Valeri Guerrier MD, [facility] ASA Classification: CLASS II- Mild systemic disease (i.e. well-controlled diabetes, hypertension, asthma, cigarette smoking) Hollis Score Preprocedure Postprocedure Activity 2- Moves 4 extremities sustained head lift Activity 2- Moves 4 extremities sustained head lift Circulation 2- SBP +/= 20 points of pre-anesthetic level Circulation 2- SBP +/= 20 points of pre-anesthetic level Consciousness 2- Awake and alert oriented x 3 Consciousness 2- Awake and alert oriented x 3 O2 Saturation 2- Able to maintain O2 satruation of 92% on room air O2 Saturation 2- Able to maintain O2 satruation of 92% on room air Respiratory 2- Able to deep breathe and cough well Respiratory 2- Able to deep breathe and cough well Total Score 10 Total Score 10 Contrast Agent: Isovue Diagnostic Contrast: 72 ml Total Contrast: 72 ml Fluoro Dose: 583 mGy Activated Clotting Time Time Seconds to Clot 11:33 AM 241 Procedure Log Time Note Enter By 10:35 AM CathStat 10:35 AM Case Start 10:45 AM Pt arrived to analytical lab technician 2 at 10:45 [email or web address] 10:45 AM Fidelia Li RT (R) Position: Monitor Time in: 10:45 [email or web address] 10:45 AM Eva Rodarte RT (R) Position: Scrub Time in: 10:45 [email or web address] 10:45 AM Patient charges- Angio tray pack, Navilyst 3mm J, Pulse Oximetry and ACIST tubing and transducer [email or web address] 10:45 AM Cathy Bobby RN Position: Separator Tender Time in: 10:45 [email or web address] 10:45 AM Case Delayed No [email or web address] 10:45 AM Physician arrived 10:45 [email or web address] 10:45 AM Meet and greet completed [email or web address] 10:45 AM Sign in performed according to hospital policy. [email or web address] 10:45 AM Procedure start 10:45 [email or web address] 10:45 AM Clinical Presentation: Stable angina [email or web address] 11: AM Vitals capture started with the following parameters, Patient=Adult, Interval=5 min, Initial Cxbhbhic=385 mmHg, Deflation Rate=5 mmHg, Cuff placed on Right Arm 11: AM HR=64 bpm, FJMJ=949/75 mmhg, SpO2=97.0 % 11:03 AM Time: 11:03 Oxygen on at 2 L/min per nasal cannula by Cathy Bobby RN [facility] :04 AM Time: 11:04 Versed 2 mg Intravenous Given by Cathy Bobby RN [facility] : AM Time: 11:04 Fentanyl 50 mcg Intravenous Given by Cathy Bobby RN [facility] 11:04 AM Time: 11:04 Patient comfortable and pain free: Yes [email or web address] AM Time: 11:04LOC: 5 = Fully awake and oriented or at pre-proc level [email or web address] 11:04 AM Recorded ECG: HR=63 Condition=Condition 1 11:06 AM HR=65 bpm, TPKA=948/73 mmhg, SpO2=97.0 %, Resp=13 B/min 11:08 AM Time out performed according to hospital policy [email or web address]10 AM Recorded ECG: HR=61 Condition=Condition 1 11:10 AM Pressure channel 1 zeroed. 11:11 AM Time: 11:11 0.5 ml Lidocaine 2% to right radial Subcutaneous Given by Valeri Guerrier MD, [facility] tsites 11:11 AM HR=59 bpm, XWOC=036/67 mmhg, SpO2=96.0 %, Resp=16 B/min 11:13 AM Access obtained by percutaneous puncture. 6Fr 10cm Terumo Glidesheath sheath placed in right Radial artery. [id number] tsites 11:13 AM Time: 11:13 Patient given 4,000 units Heparin, 200 mcg Nitroglycerin, and 2.5 mg Verapamil Intraarterial by Valeri Guerrier MD, [facility] tsites 11:16 AM HR=72 bpm, QDZQ=052/60 mmhg, SpO2=96.0 %, Resp=16 B/min 11:17 AM 5Fr FR5 catheter inserted over the wire [id number] tsites 11:17 AM 0.035 260cm Navilyst 3mmJ wire [id number] tsites 11:18 AM RCA angiography performed in multiple views. tsites 11:18 AM Recorded Pressure: Ao, HR=72, Condition=Condition 1 (Aorta) Ao 60/46/54 11:18 AM wire reinserted catheter removed tsites 11:19 AM 5Fr FL3.5 catheter inserted over the wire [id number] tsites 11:19 AM LCA angiography performed in multiple views. tsites 11:20 AM Recorded Pressure: Ao, HR=74, Condition=Condition 1 (Aorta) Ao 110/88/99 11:21 AM HR=71 bpm, LEMK=846/61 mmhg, SpO2=94.0 %, Resp=12 B/min 11:21 AM wire reinserted catheter removed tsites 11:22 AM 5Fr Pigtail catheter inserted over the wire [facility] tsites 11:22 AM Catheter selectively placed in left ventricle tsites 11:22 AM Bolus angiogram of left Ventricle complete: 8 ml/sec for a total of 24 mls tsites 11:23 AM Pressure channel 1 zeroed. 11:23 AM Recorded Pressure: LV, HR=60, Condition=Condition 1 (Left Ventricle) LV 93/19/19 11:24 AM Recorded Pressure: LV, Ao, HR=69, Condition=Condition 1 (Left Ventricle) LV 99/27/38, (Aorta) Ao 90/59/77 11:26 AM HR=68 bpm, UKLK=702/68 mmhg, SpO2=96.0 %, Resp=24 B/min 11:31 AM 6Fr XB LAD 3.5 [place] Bright-Tip guide catheter was used to cannulate the PCI vessel successfully. reused? No tsites 11:31 AM Inflation device was opened. tsites 11:31 AM Time: 11:31 Fentanyl 25 mcg Intravenous Given by Cathy Bobby RN tsites 11:31 AM HR=70 bpm, EZUQ=811/75 mmhg, SpO2=97 %, Resp=13 B/min 11:32 AM Time: 11:32 Versed 1 mg Intravenous Given by Cathy Bobby RN tsites 11:33 AM [place] pressure wire advanced to target lesion. tsites 11:33 AM At 11:33 the ACT was 241 seconds. tsites 11:35 AM Recorded Pressure: Ao, HR=68, Condition=Condition 1 (Aorta) Ao 99/42/66 11:36 AM HR=63 bpm, LQQJ=402/68 mmhg, SpO2=97 %, Resp=24 B/min 11:37 AM [ Start FFR sample ] 11:37 AM Time: 11:37 Adenosine 360 mcg administered Intracoronary by Valeri Guerrier MD, FAC tsites 11:37 AM FFR Measurement: 0.86 tsites 11:38 AM Time: 11:38 Adenosine 400 mcg administered Intracoronary by Valeri Gurerier MD, FACC tsites 11:39 AM FFR Measurement: 0.85 tsites 11:39 AM Flow Wire removed intact tsites 11:39 AM Guide catheter removed intact. tsites 11:39 AM Procedure completed at 11:39 tsites 11:40 AM Sign out completed: Radiation Dose 583 mGy Fluoro Time: 4.5 Isovue 370 - 500ml contrast 72 ml given by Valeri Guerrier MD, [facility]. Complications: NoneCardiac Rehab Consult needed: NoConfirmed administered medications: Yes tsites 11:40 AM Isovue 370 - 500ml,1 Bottle(s) used. tsites 11:40 AM Arterial sheath pulled, Vasc Band closure device used and was Successful S/N. tsites 11:40 AM 10 ml air in Vasc Band. tsites 11:40 AM Post ECG NSR tsites 11:40 AM Post Blood Pressure 119/68 tsites 11:41 AM 11:41 Post Pulses Rt Radial 1+ tsites 11:41 AM Information taught Cardiac Cath and Vasc Band tsites 11:41 AM Education needs Procedure, Plan of Care, and Responsibilities of Patient in Care tsites 11:41 AM Learning barriers :None tsites 11:41 AM Education Methods Verbal tsites 11:41 AM Education evaluation Able to repeat information tsites 11:41 AM Site status No bleeding/hematoma - Rt Wrist as reported by Eva Rodarte RT (R) at 11:41 tsites 11:41 AM HR=66 bpm, DNTU=516/75 mmhg, SpO2=99.0 %, Resp=15 B/min 11:44 AM Report given to delia BELL Pt taken to 3B Room #14. 11:43 tsites 11:44 AM Delay to floor No tsites 11:45 AM Patient out of room: 11:45 tsites 11:45 AM Family placed in consult room. tsites 11:47 AM Coronary Dominance: right tsites 11:47 AM Lesion found in Proximal LAD. Pre Stenosis: 50 Pre WANG Flow: tsites 11:47 AM Proximal Left Anterior Descending Coronary Artery with 50% stenosis. If graft is supplying this territory, 0 % stenosis. tsites Complications Complication None Hemodynamics Pressures Site Systolic/A Wave Diastolic/V Wave Mean AO 60 46 54 AO 110 88 99 LV 93 19 19 LV 99 27 38 AO 90 59 77 AO 99 42 66 Post Procedure Information Blood Pressure: 119/68 mmHg Rhythm: NSR Post procedural instructions were given Closure Device Time Device Success/Fail 11/19/2016 11:46:00 AM Mechanical Compression Successful Site Checks Time Location Status Staff Sheath In? Note 11:41 AM Rt Wrist No bleeding/hematoma Eva Rodarte RT (R) Pulses Time Site Pre-Procedure Post-Procedure Note 11/19/2016 10:33:00 AM Bilateral DP \\T\\ PT 2+ 11:41:00 AM Rt Radial 1+ Updated by Fidelia Li RT (R) on 11/19/2016 11:48:35 AM Fidelia Li RT electronically signed on 11/19/2016 11:48:57 AM with status of Final
--- NOTE | 2016-11-19 12:30 | Event Note ---
Date of Encounter: 11/19/16 Time of Encounter: 12:28 - Cardiology Event Note LHC without intervention. LAD disease unchanged--30-40% mid. Flow wired, not significant. Continue ASA, Statin, BB. If regards to PAF, maintaining SR. [place] checked xarelto $0/month, pt agrees to Xarelto. Follow-up as outpt in 2-3 weeks. Will coordinate. Cardiology signing off. Reconsult PRN.
--- NOTE | 2016-11-19 15:33 | Invasive Diagnostic Lab ---
Name: Linsey Galloway Date of Study: 11/19/2016 Date: 1965 Ht: 170.0 cm /66.9 in Medical Record#: [id number] Age: 51 Wt: 119.6 kg / 263.67 lb Account/Order#: [id number] Gender: Female BSA: 2.27 Order #: [id number] Fluoro Dose: 583 mGy BMI: 41.38 Procedure Physician: Valeri Guerrier MD, FACC Referring MD: Referring MD: Procedures Performed: LEFT HEART CATH IV Doppler BLD Flow 1st Vessel Indications: Abnormal Test - Stress Impressions: Single vessel coronary artery disease. The left ventricle is normal and has normal contractility EF 65% FFR Measurement: 0.85 across mid LAD lesion. Recommendations: Optimal medical therapy of patient's disease. Aggressive risk factor modification. History/Risk Factors: Asthma COPD Procedure Access obtained in the right Radial artery by percutaneous puncture A pressure tipped wire was advanced through the catheter into the LAD. Measurements of FFR were made during hyperemia induced by intracoronary adenosine. FFR Measurement 0.85 Complications: None Contrast: Isovue 72ml Closure Device: Mechanical Compression Hemodynamics: Pressures Site Systolic/ A Wave Diastolic/ V Wave End Diastolic/ Mean HR AO 60 46 54 72 AO 110 88 99 74 LV 93 19 19 60 LV 99 27 38 69 AO 90 59 77 69 AO 99 42 66 68 LV Ventriculography Ejection Method: LV Gram Ejection Fraction: 65% Wall Motion: BRAUN Anterobasal Normal Anterolateral Normal Apical: Normal Inferoapical Normal Inferobasal Normal Coronary Dominance: right Lesion Findings/Interventions * Left Main Coronary Artery The LMCA is angiographically free of disease. * Left Anterior Descending There is a 50% stenosis in the Proximal LAD- FFR 0.86, 0.85 * Circumflex The Circumflex is angiographically free of disease. The 1st Marginal is angiographically free of disease. * Right Coronary Artery The RCA is angiographically free of disease. The Right PDA is angiographically free of disease. Updated by RT Sukhdeep (R) on 11/19/2016 11:49:05 AM Valeri Guerrier MD, FACC electronically signed on 11/19/2016 3:28:48 PM with status of Final
[2016-11-19] MEDS ORDERED: *HR* Rivaroxaban 10 MG TABLET PO SCH (17:00)
[2016-11-20] MEDS: traMADol 50 MG TABLET PO PRN ×2 (03:03→09:06)
[2016-11-20] MEDS: tiZANidine 4 MG TABLET PO PRN ×2 (03:05→09:08)
[2016-11-20 05:23] LABS: Basophils % 0.8 %; Eosinophils # 0.2 K/mcL (0.0-0.6); Eosinophils % 3.8 %; Hematocrit 33.1 % (35.3-44.9); Hemoglobin 10.9 g/dL (11.5-15.4); Immature Granulocytes % 0.4 % (0-4); Lymphocytes # 2.2 K/mcL (0.6-4.6); Lymphocytes % 43.6 %; Mean Corpuscular HGB Conc 32.9 g/dL (31.6-35.5); Mean Corpuscular Hemoglobin 29.8 pg (28.0-33.3); Mean Corpuscular Volume 90.4 fL (83.0-100.0); Mean Platelet Volume 10.9 fL (9.4-12.4); Monocytes # 0.4 K/mcL (0.0-1.3); Monocytes % 7.8 %; Neutrophils # 2.2 K/mcL (1.6-8.9); Platelet Count 185 K/mcL (140-400); Red Blood Count 3.66 M/mcL (3.82-4.97); Red Cell Distribution Width 12.7 % (11.5-14.5); Segmented Neutrophils % 43.6 %
[2016-11-20 05:39] LABS: BUN/Creatinine Ratio 14 (6-26); Blood Urea Nitrogen 11 mg/dL (7-20); Calcium 8.9 mg/dL (8.6-10.8); Carbon Dioxide 27 mEq/L (19-29); Chloride 104 mEq/L (98-109); Glucose 110 mg/dL (70-99); Osmolality,Calculated 286 (280-300); Potassium 3.9 mEq/L (3.5-4.5); Sodium 138 mEq/L (136-145); eGFR For African Americans > 60 (> 60); eGFR For Non-African Americans > 60 (> 60)
[2016-11-20] MEDS: *HR* Heparin 5,000 UNIT/ML VIAL SQ SCH (05:45)
[2016-11-20] MEDS: Sennosides/Docusate Sodium TABLET PO PRN (05:45)
[2016-11-20 07:07] VITALS: BP 97/61
--- NOTE | 2016-11-20 08:32 | Discharge Summary ---
Date of Encounter: 11/20/16 Time of Encounter: 08:28 - Discharge Diagnosis (1) Chest pain, rule out acute myocardial infarction Priority: Primary Status: Acute (2) PAF (paroxysmal atrial fibrillation) Priority: Primary Status: Acute (3) Atrial fibrillation with RVR Priority: Primary Status: Acute (4) Morbid obesity with BMI of 40.0-44.9, adult Priority: Secondary Status: Acute (5) CAD (coronary artery disease) Priority: Secondary Status: Acute Qualifiers: Coronary Disease-Associated Artery/Lesion type: [place] artery [place] vs. transplanted heart: [place] heart Associated angina: angina presence unspecified Qualified Code(s): I25.10 - Atherosclerotic heart disease of [place] coronary artery without angina pectoris (6) DVT prophylaxis Priority: Secondary Status: Acute - Discharge Medications Prescriptions: Aspirin Enteric Coated [Aspirin EC] 81 mg PO DAILY #60 tablet. Atorvastatin [Lipitor] 20 mg PO HS #60 tablet Metoprolol [Lopressor] 12.5 mg PO BID #60 tablet Rivaroxaban [Xarelto] 20 mg PO 1700 #30 tablet Home Medications: Loratadine [Claritin] 10 mg PO DAILY 10/07/16 [History] Montelukast [Singulair] 10 mg PO HS 10/07/16 [History] Tramadol HCl [Ultram] 50 mg PO TID PRN 10/07/16 [History] Ranitidine HCl [Zantac] 150 mg PO BID 11/16/16 [History] Tizanidine HCl 4 mg PO TID PRN 11/16/16 [History] Aspirin Enteric Coated [Aspirin EC] 81 mg PO DAILY #60 tablet. 11/20/16 [Rx] Atorvastatin [Lipitor] 20 mg PO HS #60 tablet 11/20/16 [Rx] Metoprolol [Lopressor] 12.5 mg PO BID #60 tablet 11/20/16 [Rx] Rivaroxaban [Xarelto] 20 mg PO 1700 #30 tablet 11/20/16 [Rx] Allergies/Adverse Reactions: Allergies Penicillins [PCN] Allergy (Verified 11/16/16 13:11) Itching Date of admission: 11/18/16 17:24 Primary care physician: Liliana Cruz CNP Discharging clinician: Reji Thurston - Patient Status Disposition: Home, Self-Care Condition: Good Functional capacity at discharge: independent ambulation Overall status at discharge: patient is progressing back to baseline - Discharge Instructions Follow Up With: Liliana Cruz CNP [Primary Care Provider] - - Diet and Activity Activity: increase activity as tolerated Diet: low fat, low cholesterol Interval History: 51/F PCP: Liliana Aguilar PMH : Arthritis, Back pain and restless leg syndrome. HPI : Patient has persistent ongoing weakness and palpitations. This morning patient was concern about the same and was evaluated by her primary care provider. Patient was sent home but her symptoms were worsening. Patient was seen by urgent care and EKG was done which was suggestive of her atrial fibrillation with a rapid ventricular rate. Patient was sent to this hospital emergency room for further evaluation. Patient complains of nocturnal snoring along with daytime headaches. Patient's was at bedside and he confirmed the same findings regarding snoring. Course in the emergency room: Patient was evaluated in the emergency room and it was noted that patient was converted back to sinus rhythm. Patient was about to discharge from emergency room to home and at that point patient claims that she has a left-sided chest pain, nonradiating and localized. Reason for admission: Chest pain to rule out ACS. Hospital course: Hospital Course : Patient was hospitalized. 3 troponins were negative. Echocardiogram showed normal ejection fraction. Patient underwent stress test which was suggestive of reversible ischemia. Patient underwent cardiac catheterization which demonstrated 30-40% obstructive lesion. Cardiology recommended medical management. Patient's paroxysmal atrial fibrillation was addressed by cardiology. Her [id number] score is 2. Recommended prison anticoagulation with a novel anti-coagulants. [place] checked for novel anticoagulants ( xarelto) and patient will probably $0 per month as copay plan Patient needs outpatient sleep study. Home today. ASA/bb/statin/Xarelto. Effects and side effects of above medication discussed at length. Patient will follow up with primary care physician in 1-2 weeks. Patient will follow up with cardiology in 1-2 weeks. At the time of discharge patient does not have any question, concern, update or recommendations. - Time Spent with Patient Total time spent providing and/or coordinating discharge services: - Constitutional Vitals: Temp Pulse Resp BP Pulse Ox 98.1 F 60 16 97/61 93 11/20/16 07:06 11/20/16 07:06 11/20/16 07:06 11/20/16 07:06 11/20/16 07:06 General appearance: Present: cooperative, A&O X 3, morbidly obese, pleasant, answers questions appropriately - Head Head exam: Present: atraumatic, normocephalic - Eye Eye exam: Present: PERRL, conjuntiva pink, sclera anicteric Pupils: Present: PERRL - Neck Neck exam general surgery: Present: supple, trachea midline. Absent: lymphadenopathy - Respiratory Respiratory exam: Present: CTAB. Absent: accessory muscle use, rales, rhonchi, wheezes - Cardiovascular Cardiovascular exam: Present: RRR, +S1, +S2. Absent: diastolic murmur, gallop, rubs, systolic murmur - GI/Abdominal GI/Abdominal exam: Present: normal bowel sounds, soft, no peritoneal signs. Absent: distended, tenderness - Extremities Exam Extremities exam: Present: warm, radial pulses palpable and symetrical. Absent : calf tenderness, cyanotic, pedal edema - Neurological Exam Neurological exam: Present: CN II-XII intact, oriented X3, no focal deficits. Absent: pronater drift, facial droop, speech deficit - Skin Skin exam: Present: dry, intact
[2016-11-20] MEDS: Aspirin Enteric Coated 81 MG Tablet PO SCH (09:08)
== END 2016-11-20 09:40 | disposition home or self-care (01) | DRG 191 ==
LOC: EMEROO 13:00 → 3BNU 13:00
PROVIDERS: ADMIT Internal Medicine; ATTEND Registered Nurse

== ENCOUNTER 2017-04-17 17:47 | Observation (INO) ==
[2017-04-17] MEDS ORDERED: 0.9 % Sodium Chloride 1,000 ML IVC ONE (17:55)
--- NOTE | 2017-04-17 17:58 | Emergency Department Note ---
Disposition Clinical Impression: Atrial fibrillation Disposition: Still a Patient Referrals: Liliana Cruz CNP [Primary Care Provider] - Forms: ED Satisfaction Letter Arrhythmia/Palpitations HPI - General Chief Complaint: ED Arrhythmia/Palpitations Stated Complaint: A-fib Time Seen by Provider: 04/17/17 17:52 Source: patient Mode of arrival: ambulatory Limitations: no limitations Nursing Notes Reviewed: Yes Vital Signs Reviewed: Yes - History of Present Illness HPI Narrative: Patient presenting to the ED with the chief complaint of "I am in A. fib again. " Patient is on Xarelto for paroxysmal A. fib. and a few hours ago she felt herself go back into it. No chest pain currently. Some dyspnea. States she has been battling an ear infection recently. No headache. States she has had subjective fevers and chills, however. No abdominal pain, nausea, vomiting. No pain or swelling in her legs - Related Data Home Medications Medication Instructions Recorded Confirmed Loratadine [Claritin] 10 mg PO DAILY 10/07/16 04/13/17 Montelukast [Singulair] 10 mg PO HS 10/07/16 04/13/17 Tramadol HCl [Ultram] 50 mg PO TID PRN 10/07/16 04/13/17 Ranitidine HCl [Zantac] 150 mg PO BID 11/16/16 04/13/17 Methocarbamol [Robaxin] 750 mg PO Q8HR PRN 04/13/17 04/13/17 Previous Rx's Medication Instructions Recorded Aspirin Enteric Coated [Aspirin EC] 81 mg PO DAILY #60 tablet. 11/20/16 Metoprolol [Lopressor] 12.5 mg PO BID #60 tablet 11/20/16 Rivaroxaban [Xarelto] 20 mg PO 1700 #30 tablet 11/20/16 Allergies Allergy/AdvReac Type Severity Reaction Status Date / Time Penicillins [PCN] Allergy Itching Verified 04/17/17 17:51 morphine AdvReac Gastrointestinal Verified 04/17/17 17:51 Upset All systems ED: reviewed and negative except as stated. Constitutional: Reports: fever (subjective). Denies: weakness ENT ED: Reports: ear pain Cardiovascular: Reports: palpitations, dyspnea on exertion. Denies: chest pain Musculoskeletal: Denies: back pain Past Medical History - Past Medical History Attestation: Yes The following information was validated with the patient. 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 - Social History Smoking Status: Former smoker Smokeless Tobacco Status: No Alcohol use: Reports: none Drug use: Reports: none Physical Exam - General Limitations: no limitations General appearance: alert, in no apparent distress - Head Head exam: atraumatic, normocephalic, normal inspection - Eye Eye exam: Present: normal appearance, PERRL, EOMI - ENT ENT exam: normal exam, normal oropharynx, mucous membranes moist - Neck Neck exam: Present: normal inspection, full ROM, trachea midline - Chest Chest inspection: Present: normal inspection, symmetric chest wall rise - Respiratory Respiratory exam: Present: normal lung sounds bilaterally - Cardiovascular Cardiovascular exam: Present: tachycardia, irregular rhythm - Abdominal Exam Abdominal exam: Present: soft, Non-Tender. Absent: tenderness, distention, guarding, rebound, rigidity - Extremities Exam Extremities exam: Present: normal inspection, full ROM. Absent: tenderness, pedal edema - Neurological Exam Neurological exam: Present: alert, oriented X3 - Psychiatric Psychiatric exam: Present: normal affect, normal mood - Skin Skin exam: Present: warm, dry, intact, normal color Course Course Narrative: Patient with a history of paroxysmal A. fib presenting with same. Patient tachycardic and regular on exam. We will get EKG, labs and likely admit. - Reevaluation(s) Reevaluation #1: patient will be signed out to night time team, Dr. Zuñiga/Moris Vital Signs Temperature 97.9 F 04/17/17 17:48 Pulse Rate 118 04/17/17 17:48 Respiratory Rate 16 04/17/17 17:48 Blood Pressure 153/104 04/17/17 17:48 O2 Sat by Pulse Oximetry 97 04/17/17 17:48 Temperature 97.9 F 04/17/17 17:48 Pulse Rate 118 04/17/17 17:48 Respiratory Rate 16 04/17/17 18:37 Blood Pressure 125/83 04/17/17 18:37 O2 Sat by Pulse Oximetry 94 04/17/17 18:37 Oxygen Delivery Oxygen Delivery Room Air Arrhythmia/Palpitations - Medical Records Medical records reviewed: Yes I reviewed the patient's medical records. - Lab Data Lab results reviewed: Yes I reviewed the patient's lab results. Result diagrams: 04/17/17 18:24 04/17/17 18:24 Lab Results 04/17/17 04/17/17 04/17/17 Range/Units 18:24 18:24 18:24 WBC 5.7 (4.3-11.1) K/mcL RBC 4.56 (3.82-4.97) M/mcL Hgb 13.2 (11.5-15.4) g/dL Hct 39.9 (35.3-44.9) % MCV 87.5 (83.0-100.0) fL MCH 28.9 (28.0-33.3) pg MCHC 33.1 (31.6-35.5) g/dL RDW 13.0 (11.5-14.5) % Plt Count 230 (140-400) K/mcL MPV 10.0 (9.4-12.4) fL Immature Gran % 0.4 (0-4) % Seg Neutrophils % 44.4 % Lymphocytes % 41.1 % Monocytes % 10.4 % Eosinophils % 3.0 % Basophils % 0.7 % Neutrophils # 2.5 (1.6-8.9) K/mcL Lymphocytes # 2.3 (0.6-4.6) K/mcL Monocytes # 0.6 (0.0-1.3) K/mcL Eosinophils # 0.2 (0.0-0.6) K/mcL Basophils # 0.0 (0.0-0.2) K/mcL Sodium 143 (136-145) mEq/L Potassium 3.9 (3.5-4.5) mEq/L Chloride 108 (98-109) mEq/L Carbon Dioxide 25 (19-29) mEq/L BUN 11 (7-20) mg/dL Creatinine 0.90 (0.57-1.11) mg/dL Est GFR ( Amer) > 60 (> 60) Est GFR (Non-Af Amer) > 60 (> 60) BUN/Creatinine Ratio 12 (6-26) Glucose 106 H (70-99) mg/dL Calculated Osmolality 296 (280-300) Calcium 9.4 (8.6-10.8) mg/dL Magnesium 2.4 (1.6-2.6) mg/dL Troponin I 0.00 (0-0.03) ng/mL - Radiology Data Radiology results reviewed: Yes I reviewed the patient's radiology results. - EKG Data EKG attestation: Yes I reviewed and interpreted this EKG. EKG results narrative: A. fib with RVR, rate 144, QRS 101, QTc 387, normal axis, suspected rate dependent ST segment depression in precordial leads
[2017-04-17] MEDS ORDERED: dilTIAZem HCl 100 MG in D5% in Water 50 ML IVC SCH (18:30)
[2017-04-17 18:33] LABS: Basophils % 0.7 %; Eosinophils # 0.2 K/mcL (0.0-0.6); Hematocrit 39.9 % (35.3-44.9); Hemoglobin 13.2 g/dL (11.5-15.4); Immature Granulocytes % 0.4 % (0-4); Lymphocytes # 2.3 K/mcL (0.6-4.6); Lymphocytes % 41.1 %; Mean Corpuscular HGB Conc 33.1 g/dL (31.6-35.5); Mean Corpuscular Hemoglobin 28.9 pg (28.0-33.3); Mean Corpuscular Volume 87.5 fL (83.0-100.0); Monocytes # 0.6 K/mcL (0.0-1.3); Monocytes % 10.4 %; Neutrophils # 2.5 K/mcL (1.6-8.9); Platelet Count 230 K/mcL (140-400); Red Blood Count 4.56 M/mcL (3.82-4.97); Segmented Neutrophils % 44.4 %
[2017-04-17 18:45] LABS: BUN/Creatinine Ratio 12 (6-26); Blood Urea Nitrogen 11 mg/dL (7-20); Calcium 9.4 mg/dL (8.6-10.8); Carbon Dioxide 25 mEq/L (19-29); Chloride 108 mEq/L (98-109); Glucose 106 mg/dL (70-99); Magnesium 2.4 mg/dL (1.6-2.6); Osmolality,Calculated 296 (280-300); Potassium 3.9 mEq/L (3.5-4.5); Sodium 143 mEq/L (136-145); eGFR For African Americans > 60 (> 60); eGFR For Non-African Americans > 60 (> 60)
--- NOTE | 2017-04-17 18:50 | Emergency Department Note ---
START Narrative - START START: I examined this patient and my medical decision-making was reviewed with the Resident Physician. I agree with the documented findings, disposition and treatment plan as described except to the extent set forth below. 51 year old female presents to the ED with paroxysmal atrial fibrilaltion and states that she feels like her heart is fluttering again. She is current ly in atrial fibrillation with ra te of 144. We will start cardizem now. EF: 65% and admit to medicine after cardiopulmonary workup.
[2017-04-17 19:07] LABS: Thyroid Stimulating Hormone 1.551 mcIU/mL (0.350-4.840)
[2017-04-17 19:13] LABS: Bilirubin,Urine Negative (Negative); Blood,Urine Small (Negative); Clarity,Urine Clear (Clear); Color,Urine Yellow (Yellow); Glucose,Urine (UA) Normal (Normal); Ketones,Urine Negative (Negative); Leukocyte Esterase,Urine Negative (Negative); Nitrite,Urine Negative (Negative); Protein,Urine Negative (Neg-Trace); Specific Gravity,Urine 1.006 (1.010-1.025); Urobilinogen,Urine Normal (Normal)
[2017-04-17 19:22] LABS: Bacteria,Urine None Seen per hpf (None-Few); RBC,Urine 0-3 per hpf (0-3); Squamous Epithelial Cell,Urine Few per lpf (None-Few); WBC,Urine 0-3 per hpf (0-3)
[2017-04-17 19:23] LABS: Hyaline Casts,Urine None Seen per lpf (None-Few)
--- NOTE | 2017-04-17 19:24 | Emergency Department Note ---
Disposition Clinical Impression: Atrial fibrillation with RVR Atrial fibrillation Qualifiers: Atrial fibrillation type: paroxysmal Qualified Code(s): I48.0 - Paroxysmal atrial fibrillation Disposition: Admitted As Inpatient Condition: Undetermined Referrals: Liliana Cruz CNP [Primary Care Provider] - Forms: ED Satisfaction Letter Time of Disposition: 19:33 Arrhythmia/Palpitations HPI - General Chief Complaint: ED Arrhythmia/Palpitations Stated Complaint: A-fib Time Seen by Provider: 04/17/17 17:52 Source: patient Mode of arrival: ambulatory Limitations: no limitations Nursing Notes Reviewed: Yes Vital Signs Reviewed: Yes - History of Present Illness HPI Narrative: 51-year-old female who is a signout from the day team arrives [facility] [place] emergency department in paroxysmal A. fib. The patient has a history of this in his actions or ulcer for this. The patient states she felt her self go into A. fib roughly 1 hour prior to arrival according to history. The patient decided to the emergency department that time. She is on Xarelto for the A. fib as well as metoprolol 12.5 mg twice a day. The patient denies any chest pain. Upon arrival to the emergency department she was started on a Cardizem drip and the labs were obtained. The patient's labs demonstrated no acute process. Cardizem slowed the patient's heart rate from the 140s down into the upper 90s. The patient is resting comfortably at this time. Workup here in the emergency department chemistries no acute findings. We will admit the patient to the hospitalist for further workup and care. Patient agrees to plan. - Related Data Home Medications Medication Instructions Recorded Confirmed Loratadine [Claritin] 10 mg PO DAILY 10/07/16 04/13/17 Montelukast [Singulair] 10 mg PO HS 10/07/16 04/13/17 Tramadol HCl [Ultram] 50 mg PO TID PRN 10/07/16 04/13/17 Ranitidine HCl [Zantac] 150 mg PO BID 11/16/16 04/13/17 Methocarbamol [Robaxin] 750 mg PO Q8HR PRN 04/13/17 04/13/17 Previous Rx's Medication Instructions Recorded Aspirin Enteric Coated [Aspirin EC] 81 mg PO DAILY #60 tablet. 11/20/16 Metoprolol [Lopressor] 12.5 mg PO BID #60 tablet 11/20/16 Rivaroxaban [Xarelto] 20 mg PO 1700 #30 tablet 11/20/16 Allergies Allergy/AdvReac Type Severity Reaction Status Date / Time Penicillins [PCN] Allergy Itching Verified 04/17/17 17:51 morphine AdvReac Gastrointestinal Verified 04/17/17 17:51 Upset All systems ED: reviewed and negative except as stated. Constitutional: Reports: fever (subjective). Denies: weakness ENT ED: Reports: ear pain Cardiovascular: Reports: palpitations, dyspnea on exertion. Denies: chest pain Musculoskeletal: Denies: back pain Past Medical History - Past Medical History Attestation: Yes The following information was validated with the patient. 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 - Social History Smoking Status: Former smoker Smokeless Tobacco Status: No Alcohol use: Reports: none Drug use: Reports: none Physical Exam - General Limitations: no limitations General appearance: alert, in no apparent distress - Head Head exam: atraumatic, normocephalic, normal inspection - Eye Eye exam: Present: normal appearance, PERRL, EOMI - Neck Neck exam: Present: normal inspection, full ROM, trachea midline - Chest Chest inspection: Present: normal inspection, symmetric chest wall rise - Respiratory Respiratory exam: Present: normal lung sounds bilaterally - Cardiovascular Cardiovascular exam: Present: regular rate, irregular rhythm, normal heart sounds - Abdominal Exam Abdominal exam: Present: soft, Non-Tender. Absent: tenderness, distention, guarding, rebound, rigidity - Extremities Exam Extremities exam: Present: normal inspection, full ROM. Absent: tenderness, pedal edema Course Vital Signs Temperature 97.9 F 04/17/17 17:48 Pulse Rate 118 04/17/17 17:48 Respiratory Rate 16 04/17/17 17:48 Blood Pressure 153/104 04/17/17 17:48 O2 Sat by Pulse Oximetry 97 04/17/17 17:48 Temperature 97.9 F 04/17/17 17:48 Pulse Rate 117 04/17/17 19:18 Respiratory Rate 12 04/17/17 19:18 Blood Pressure 110/75 04/17/17 19:18 O2 Sat by Pulse Oximetry 95 04/17/17 19:18 Oxygen Delivery Oxygen Delivery Room Air Arrhythmia/Palpitations - MDM Narrative Medical decision making narrative: We will admit the patient to the hospitalist. Accepted by Dr. Dorado. Chest X-Ray 04/17/17 17:55 IMPRESSION: No acute process. D/ / Alon Moran MD / Alon Moran MD Interpreting Provider: Alon Moran MD - Lab Data Lab results reviewed: Yes I reviewed the patient's lab results. Result diagrams: 04/17/17 18:24 04/17/17 18:24 Lab Results 04/17/17 04/17/17 04/17/17 Range/Units 18:24 18:24 18:24 WBC 5.7 (4.3-11.1) K/mcL RBC 4.56 (3.82-4.97) M/mcL Hgb 13.2 (11.5-15.4) g/dL Hct 39.9 (35.3-44.9) % MCV 87.5 (83.0-100.0) fL MCH 28.9 (28.0-33.3) pg MCHC 33.1 (31.6-35.5) g/dL RDW 13.0 (11.5-14.5) % Plt Count 230 (140-400) K/mcL MPV 10.0 (9.4-12.4) fL Immature Gran % 0.4 (0-4) % Seg Neutrophils % 44.4 % Lymphocytes % 41.1 % Monocytes % 10.4 % Eosinophils % 3.0 % Basophils % 0.7 % Neutrophils # 2.5 (1.6-8.9) K/mcL Lymphocytes # 2.3 (0.6-4.6) K/mcL Monocytes # 0.6 (0.0-1.3) K/mcL Eosinophils # 0.2 (0.0-0.6) K/mcL Basophils # 0.0 (0.0-0.2) K/mcL Sodium 143 (136-145) mEq/L Potassium 3.9 (3.5-4.5) mEq/L Chloride 108 (98-109) mEq/L Carbon Dioxide 25 (19-29) mEq/L BUN 11 (7-20) mg/dL Creatinine 0.90 (0.57-1.11) mg/dL Est GFR ( Amer) > 60 (> 60) Est GFR (Non-Af Amer) > 60 (> 60) BUN/Creatinine Ratio 12 (6-26) Glucose 106 H (70-99) mg/dL Calculated Osmolality 296 (280-300) Calcium 9.4 (8.6-10.8) mg/dL Magnesium 2.4 (1.6-2.6) mg/dL Troponin I 0.00 (0-0.03) ng/mL TSH 1.551 (0.350-4.840) mcIU/mL Urine Color (Yellow) Urine Clarity (Clear) Urine pH (5.0-8.0) pH Units Ur Specific [place] (1.010-1.025) Urine Protein (Neg-Trace) mg/dL Urine Glucose (UA) (Normal) mg/dL Urine Ketones (Negative) mg/dL Urine Blood (Negative) Urine Nitrite (Negative) Urine Bilirubin (Negative) Urine Urobilinogen (Normal) mg/dL Ur Leukocyte Esterase (Negative) Urine Microscopic RBC (0-3) per hpf Urine Microscopic WBC (0-3) per hpf Ur Squamous Epith Cells (None-Few) per lpf Urine Bacteria (None-Few) per hpf Hyaline Casts (None-Few) per lpf Ur Culture Indicated? (NO) 04/17/17 Range/Units 19:02 WBC (4.3-11.1) K/mcL RBC (3.82-4.97) M/mcL Hgb (11.5-15.4) g/dL Hct (35.3-44.9) % MCV (83.0-100.0) fL MCH (28.0-33.3) pg MCHC (31.6-35.5) g/dL RDW (11.5-14.5) % Plt Count (140-400) K/mcL MPV (9.4-12.4) fL Immature Gran % (0-4) % Seg Neutrophils % % Lymphocytes % % Monocytes % % Eosinophils % % Basophils % % Neutrophils # (1.6-8.9) K/mcL Lymphocytes # (0.6-4.6) K/mcL Monocytes # (0.0-1.3) K/mcL Eosinophils # (0.0-0.6) K/mcL Basophils # (0.0-0.2) K/mcL Sodium (136-145) mEq/L Potassium (3.5-4.5) mEq/L Chloride (98-109) mEq/L Carbon Dioxide (19-29) mEq/L BUN (7-20) mg/dL Creatinine (0.57-1.11) mg/dL Est GFR ( Amer) (> 60) Est GFR (Non-Af Amer) (> 60) BUN/Creatinine Ratio (6-26) Glucose (70-99) mg/dL Calculated Osmolality (280-300) Calcium (8.6-10.8) mg/dL Magnesium (1.6-2.6) mg/dL Troponin I (0-0.03) ng/mL TSH (0.350-4.840) mcIU/mL Urine Color Yellow (Yellow) Urine Clarity Clear (Clear) Urine pH 7.0 (5.0-8.0) pH Units Ur Specific [place] 1.006 L (1.010-1.025) Urine Protein Negative (Neg-Trace) mg/dL Urine Glucose (UA) Normal (Normal) mg/dL Urine Ketones Negative (Negative) mg/dL Urine Blood Small H (Negative) Urine Nitrite Negative (Negative) Urine Bilirubin Negative (Negative) Urine Urobilinogen Normal (Normal) mg/dL Ur Leukocyte Esterase Negative (Negative) Urine Microscopic RBC 0-3 (0-3) per hpf Urine Microscopic WBC 0-3 (0-3) per hpf Ur Squamous Epith Cells Few (None-Few) per lpf Urine Bacteria None Seen (None-Few) per hpf Hyaline Casts None Seen (None-Few) per lpf Ur Culture Indicated? NO (NO) - EKG Data EKG attestation: Yes I reviewed and interpreted this EKG. EKG results narrative: Heart rate 1 44 bpm. QTc 387 ms. [address] fibrillation. No ST elevation and mild ST depression noted in lateral leads. EKG #2. Heart rate 81 bpm. OK interval 277 ms. QTC 419 ms. Normal sinus rhythm with first-degree AV block. No ST elevation or ST depression noted.
[2017-04-17] MEDS ORDERED: 0.9 % Sodium Chloride 500 ML ONE (19:55)
[2017-04-17] MEDS ORDERED: Ondansetron 4 MG/2 ML VIAL IVP PRN (20:22)
[2017-04-17] MEDS ORDERED: Naloxone 0.4 MG/ML INJ IVP PRN (20:22)
[2017-04-17] MEDS ORDERED: traMADol 50 MG TABLET PO PRN (20:23)
[2017-04-17] MEDS ORDERED: Methocarbamol 500 MG TABLET PO PRN (20:23)
[2017-04-17] MEDS ORDERED: *HR* Rivaroxaban 10 MG TABLET PO SCH (20:24)
[2017-04-17] MEDS ORDERED: GuaiFENesin/Dextromethorphan TABLET PO PRN (20:52)
--- NOTE | 2017-04-17 21:02 | Internal Med History&Physical ---
Date of Encounter: 04/17/17 Time of Encounter: 20:55 Assessment and Plan (1) PAF (paroxysmal atrial fibrillation) Current visit: No Status: Acute Rate controlled on cardizem gtt, titrate to maintain HR<100 Will increase home dose of Metoprolol to 25mg PO BID continue anticoagulation with Xarelto cardiology evaluation requested (2) Hyperlipidemia Current visit: No Status: Chronic continue statin therapy Qualifiers: Hyperlipidemia type: unspecified Qualified Code(s): E78.5 - Hyperlipidemia , unspecified (3) CAD (coronary artery disease) Current visit: No Status: Chronic no signs of angina present at this time continue ASA, BB, statin Qualifiers: Coronary Disease-Associated Artery/Lesion type: [place] artery [place] vs. transplanted heart: [place] heart Associated angina: angina presence unspecified Qualified Code(s): I25.10 - Atherosclerotic heart disease of [place] coronary artery without angina pectoris (4) Morbid obesity with BMI of 40.0-44.9, adult Current visit: No Status: Chronic (5) DVT prophylaxis Current visit: No Status: Acute anticoagulated with xarelto Internal Medicine - H&P: HPI Chief complaint: elevated heart rate Admitted From: Home Plans for Post Hospital Care: Home History of present illness: Ms. Galloway is a 51 year old female with PMH Of CAD, Afib who presented to the ER for evaluation of shortness of breath and elevated HR. Pt reports of being in her usual state of health when she started noticing her HR racing due to which she checked her BP and found her HR to be in the 140s. She states she takes Metoprolol at home and her HR has been well controlled. Upon arrival to the ER, she was found to be in Afib with RVR and received 20mg IVP Cardizem. HR was not controlled due to which she was started on cardizem gtt was started. At this time, she is in NSR at 84bpm on cardizem gtt. Denies any sob, chest pain. Reports of recently finishing treatment for an ear infection, but states she still feels congested and has diffuse headaches. Denies any other discomfort at this time. Pt was hospitalized in October 2016 and underwent LHC which showed LAD disease and was diagnosed with Afib at that time. Past Med Surg Social Fam HX - Past Medical History Medical history: asthma, atrial fibrillation, coronary artery disease, GERD, hypertension, kidney stones, other Psychiatric history: no psych history - Past Surgical History Surgical History: cholecystectomy, hysterectomy - Social History Smoking Status: Former smoker Smokeless Tobacco Status: No Alcohol use: none Drug use: none - Family History Mother Living Status: Hx Family Cardiac Disorders: Yes (CHF [place]) Hx Family Endocrine Disorder: Yes (type 1 DM) Father Living Status: Hx Family Cardiac Disorders: Yes (triple bypass, [place]) Internal Medicine - H&P: Meds Loratadine [Claritin] 10 mg PO DAILY 10/07/16 [History] Montelukast [Singulair] 10 mg PO HS 10/07/16 [History] Tramadol HCl [Ultram] 50 mg PO TID PRN 10/07/16 [History] Ranitidine HCl [Zantac] 150 mg PO BID 11/16/16 [History] Aspirin Enteric Coated [Aspirin EC] 81 mg PO DAILY #60 tablet. 11/20/16 [Rx] Metoprolol [Lopressor] 12.5 mg PO BID #60 tablet 11/20/16 [Rx] Rivaroxaban [Xarelto] 20 mg PO 1700 #30 tablet 11/20/16 [Rx] Methocarbamol [Robaxin] 500 mg PO Q8HR PRN 04/13/17 [History] 3 Allergy/AdvReac Type Severity Reaction Status Date / Time Penicillins [PCN] Allergy Itching Verified 04/17/17 17:51 morphine AdvReac Gastrointestinal Verified 04/17/17 17:51 Upset All Systems PM: A 10-system review of systems was performed and is negative for pertinent findings except as documented above in the HPI. - Constitutional Constitutional: as per HPI - Constitutional Vitals: Temp Pulse Resp BP Pulse Ox 98.1 F 79 16 129/86 95 04/17/17 20:22 04/17/17 20:22 04/17/17 20:22 04/17/17 20:22 04/17/17 20:22 General appearance: Present: cooperative, A&O X 3, morbidly obese, no acute distress, answers questions appropriately - Head Head exam: Present: atraumatic, normocephalic - Eye Eye exam: Present: conjuntiva pink, sclera anicteric - Respiratory Respiratory exam: Present: CTAB. Absent: accessory muscle use, rales, rhonchi, wheezes - Cardiovascular Cardiovascular exam: Present: RRR, +S1, +S2. Absent: diastolic murmur, gallop, rubs, systolic murmur - GI/Abdominal GI/Abdominal exam: Present: normal bowel sounds, soft, no peritoneal signs. Absent: distended, tenderness - Extremities Exam Extremities exam: Present: warm, radial pulses palpable and symmetrical. Absent : calf tenderness, cyanotic, pedal edema - Neurological Exam Neurological exam: Present: alert, oriented X3 - Psychiatric Psychiatric exam: Present: normal affect, normal mood Internal Med - H&P Results - Labs CBC & Chem 7: 04/17/17 18:24 04/17/17 18:24
[2017-04-17] MEDS: Famotidine 20 MG TABLET PO SCH (21:48)
[2017-04-18 00:30] LABS: Basophils % 0.7 %; Eosinophils # 0.2 K/mcL (0.0-0.6); Eosinophils % 3.1 %; Hematocrit 35.9 % (35.3-44.9); Hemoglobin 11.9 g/dL (11.5-15.4); Immature Granulocytes % 0.3 % (0-4); Immature Platelets 3.3 % (1.1-6.1); Lymphocytes # 2.9 K/mcL (0.6-4.6); Lymphocytes % 47.5 %; Mean Corpuscular HGB Conc 33.1 g/dL (31.6-35.5); Mean Corpuscular Hemoglobin 29.3 pg (28.0-33.3); Mean Corpuscular Volume 88.4 fL (83.0-100.0); Mean Platelet Volume 9.9 fL (9.4-12.4); Monocytes # 0.5 K/mcL (0.0-1.3); Monocytes % 8.7 %; Neutrophils # 2.4 K/mcL (1.6-8.9); Platelet Count 233 K/mcL (140-400); Red Blood Count 4.06 M/mcL (3.82-4.97); Red Cell Distribution Width 12.9 % (11.5-14.5); Segmented Neutrophils % 39.7 %
[2017-04-18 00:43] LABS: BUN/Creatinine Ratio 14 (6-26); Blood Urea Nitrogen 11 mg/dL (7-20); Calcium 8.9 mg/dL (8.6-10.8); Carbon Dioxide 25 mEq/L (19-29); Chloride 108 mEq/L (98-109); Chol/HDL Ratio 3.5 (0-4.9); Cholesterol 160 mg/dL (< 200); Glucose 119 mg/dL (70-99); HDL Cholesterol 46 mg/dL (40-59); LDL Cholesterol,Calculated 68 mg/dL (0-99); Magnesium 2.3 mg/dL (1.6-2.6); Osmolality,Calculated 289 (280-300); Phosphorous 3.3 mg/dL (2.3-4.7); Potassium 3.7 mEq/L (3.5-4.5); Sodium 139 mEq/L (136-145); Triglycerides 230 mg/dL (< 150); eGFR For African Americans > 60 (> 60); eGFR For Non-African Americans > 60 (> 60)
[2017-04-18 07:51] VITALS: BP 109/71
[2017-04-18] MEDS: Famotidine 20 MG TABLET PO SCH (08:57)
[2017-04-18] MEDS ORDERED: Aspirin Enteric Coated 81 MG Tablet PO SCH (09:00)
[2017-04-18] MEDS ORDERED: Loratadine 10 MG TABLET PO SCH (09:00)
--- NOTE | 2017-04-18 11:14 | Cardiology Consult Note ---
<Jeffy Culver Fuad - Last Filed: 04/18/17 11:12> Date of Encounter: 04/18/17 Time of Encounter: 10:45 Assessment and Plan (1) Atrial fibrillation with RVR Current Visit: Yes Status: Acute Per Cardiology: History of paroxysmal atrial fibrillation noted October 2016. Previously sinus rhythm with low dose beta bethany. Recurrent onset of A. fib with RVR in setting of fever, chills, nausea, vomiting, diarrhea, and cough ( has had as well). Now back in sinus rhythm with increased dose of beta bethany. Cardizem gtt off. Systolic blood pressures in the 100s to 110s. Trops negative 3. TSH and magnesium okay. Recent echo October 2016 showed EF preserved at 65%, moderate diastolic dysfunction, mild to moderate left atrial enlargement, normal RV structure and function, no pulmonary hypertension, NSWMA. Discussed and reviewed with Dr. Castle, recommend continue with current higher dose of beta bethany. Patient keep a heart rate blood pressure log and bring to follow- up. No further recommendations at this time. Cardiology will sign off, re- consult as needed, follow-up scheduled. Recommend evaluation for outpatient sleep study. Remains anticoagulated with Xarelto. Denies any active bleeding or blood loss. (2) CAD (coronary artery disease) Current Visit: No Status: Chronic Per Cardiology: Abnormal nuclear stress test October with catheterization that time showing mid LAD 50% lesion with FFR 0.85 being medically managed. Chest pain free. Troponins negative 3. On aspirin, statin, beta bethany. Qualifiers: Coronary Disease-Associated Artery/Lesion type: [place] artery [place] vs. transplanted heart: [place] heart Associated angina: angina presence unspecified Qualified Code(s): I25.10 - Atherosclerotic heart disease of [place] coronary artery without angina pectoris Discussion w patient/family: The assessment and plan as outlined above was discussed with the patient and/or family members who expressed understanding and agreement. All questions were answered. Thank you for involving us in the care of your patient. Please call with any questions. History of Present Illness Consult date: 04/18/17 Requesting physician: Ankita Quick Consult reason: Afib Chief complaint: Afib History of present illness: Ms. Galloway is a 51 year old female with a relevant past medical history of CAD , asthma, paroxysmal atrial fibrillation. Cardiology consult for A. fib with RVR. Patient seen today with at bedside. She reports has taken antibiotics on 2 separate occasions over the past one month for ear infection with minimal improvement. Additionally, patient and report the past few days they both experienced nausea, vomiting, fever, chills, cough with greenish sputum, and mild diarrhea. She reports she developed palpitations, short of breath, "I knew my heart was back on her rhythm "that lasted for a few hours and is now subsided with medication from the ER. Prior to this event she denies any palpitations. She denies any chest pain, dizziness, syncope, falls. Denies any active bleeding or blood loss. Takes baby aspirin and Xarelto at home. Reports compliance with medications. Past Med Surg Social Fam HX - Past Medical History Attestation: Yes The following information was validated with the patient. Source: patient, old records reviewed, obtained from family Medical history: asthma, atrial fibrillation, coronary artery disease, GERD, hypertension, kidney stones, other Psychiatric history: no psych history - Past Surgical History Surgical History: cholecystectomy, hysterectomy - Social History Smoking Status: Former smoker Smokeless Tobacco Status: No Alcohol use: none Drug use: none - Family History Mother Living Status: Hx Family Cardiac Disorders: Yes (chf) Hx Family Endocrine Disorder: Yes (diabetic) Father Living Status: Hx Family Cardiac Disorders: Yes (AFib) Hx Family Endocrine Disorder: Yes (diabetic) Medications and Allergies Loratadine [Claritin] 10 mg PO DAILY 10/07/16 [History] Montelukast [Singulair] 10 mg PO HS 10/07/16 [History] Tramadol HCl [Ultram] 50 mg PO TID PRN 10/07/16 [History] Ranitidine HCl [Zantac] 150 mg PO BID 11/16/16 [History] Aspirin Enteric Coated [Aspirin EC] 81 mg PO DAILY #60 tablet. 11/20/16 [Rx] Rivaroxaban [Xarelto] 20 mg PO 1700 #30 tablet 11/20/16 [Rx] Methocarbamol [Robaxin] 500 mg PO Q8HR PRN 04/13/17 [History] Atorvastatin [Lipitor] 40 mg PO HS #30 tablet 04/18/17 [Rx] Ciprofloxacin HCl/Dexameth [Ciprodex Otic Suspension] 7.5 ml OT BID 7 Days #1 bottle 04/18/17 [Rx] GuaiFENesin/Dextromethorphan [Mucinex Dm] 1 each PO BID PRN #30 tab.er.12h 04/18 [Rx] Metoprolol [Lopressor] 25 mg PO BID #60 tablet 04/18/17 [Rx] [place]-3S/Dha/Epa/Fish Oil/D3 [Fish Oil Gummies] 2 each PO DAILY 04/18/17 [ History] 3 Allergy/AdvReac Type Severity Reaction Status Date / Time Penicillins [PCN] Allergy Itching Verified 04/17/17 17:51 morphine AdvReac Gastrointestinal Verified 04/17/17 17:51 Upset All Systems Review: A 10-system review of systems was performed and is negative for pertinent findings except as documented above in the HPI. - Constitutional Constitutional: chills, fatigue, fever(s) - Cardiovascular Cardiovascular: as per HPI, dyspnea at rest, palpitations, rapid heart rate - Respiratory Respiratory: cough - Gastrointestinal Gastrointestinal: diarrhea, nausea Physical Examination Vital Signs, Last 4 Hours Temp Pulse Resp BP Pulse Ox 04/18/17 07:49 97.8 F 63 12 109/71 96 General: Conversant, No Apparent Distress HEENT: Atraumatic, Normocephaly, Mucus Membranes Moist Neck: No JVD, Normal carotid pulses Cardiac: Reg Rate and Rhythm, Normal S1 and S2, No Murmur Lungs: Normal Breath Sounds, No Wheeze, Rales, Rhonchi Neuro: Alert and responsive, No focal deficits noted Abdomen: Soft, Non-Tender Skin: No rashes noted on visualized skin Musculoskeletal: No Chest Wall Tenderness Extremities: No Clubbing, No Cyanosis, No Edema, Normal Pulses Results 04/18/17 00:21 04/18/17 00:21 Lab Results Laboratory Tests 04/17/17 04/17/17 04/18/17 18:24 18:24 00:21 Troponin I 0.00 0.00 LDL Cholesterol, Calc TSH 1.551 04/18/17 04/18/17 00:21 06:23 Troponin I 0.01 LDL Cholesterol, Calc 68 TSH ITS Impressions Chest X-Ray 04/17/17 17:55 IMPRESSION: No acute process. D/ / Alon Moran MD / Alon Moran MD Interpreting Provider: Alon Moran MD Active Medications Aspirin (Aspirin Ec) 81 mg PO DAILY ANGY Stop: 10/18/17 09:01 Last Admin: 04/18/17 08:57 Dose: 81 mg Atorvastatin Calcium (Lipitor) 40 mg PO HS ANGY Stop: 10/17/17 21:16 Last Admin: 04/17/17 21:58 Dose: 40 mg Famotidine (Pepcid) 20 mg PO BIDAC ANGY Stop: 10/17/17 21:01 Last Admin: 04/18/17 08:57 Dose: 20 mg Guaifenesin (Mucinex Dm) 1 each PO BID PRN PRN Reason: Cough Stop: 10/17/17 20:53 Last Admin: 04/18/17 09:01 Dose: 1 each Diltiazem HCl 100 mg/ Dextrose 50 mls @ 2.5 mls/hr IVC .Q20H ANGY; 5 MG/HR PRN Reason: Protocol Stop: 10/17/17 18:31 Last Titration: 04/17/17 21:50 Dose: 0 mg/hr, 0 mls/hr Loratadine (Claritin) 10 mg PO DAILY ANGY PRN Reason: Protocol Stop: 10/18/17 09:01 Last Admin: 04/18/17 08:57 Dose: 10 mg Methocarbamol (Robaxin) 500 mg PO Q8HR PRN PRN Reason: Muscle Spasm Stop: 10/17/17 20:24 Metoprolol Tartrate (Lopressor) 25 mg PO BID ANGY Stop: 10/17/17 21:01 Last Admin: 04/18/17 08:57 Dose: 25 mg Montelukast Sodium (Singulair) 10 mg PO HS ANGY Stop: 10/17/17 21:01 Last Admin: 04/17/17 21:48 Dose: 10 mg Naloxone HCl (Narcan) 0.4 mg IVP Q2MIN PRN PRN Reason: Opioid Reversal Stop: 10/17/17 20:23 Ondansetron HCl (Zofran) 4 mg IVP Q6HR PRN PRN Reason: Nausea And Vomiting Stop: 10/17/17 20:23 Rivaroxaban (Xarelto) 20 mg PO 1700 ANGY Stop: 10/18/17 17:01 Tramadol HCl (Ultram) 50 mg PO TID PRN PRN Reason: mild to moderate pain Stop: 10/17/17 20:24 - Imaging and Cardiology Stress Test: report reviewed Echo: report reviewed Cardiac cath: report reviewed - EKG Interpretation EKG results cardiology: personally reviewed (A. fib with RVR in the 140s), other (24 hour telemetry reviewed with average heart rate 69, currently sinus rhythm) Consult Discharge Plan - Plan Instructions: Ciprofloxacin (By mouth), Metoprolol (By mouth), Atorvastatin ( By mouth), Atrial Fibrillation (DC) Additional Instructions: Follow up with PCP within one week of discharge follow up with cardiology outpatient. take all meds as prescribed. please return to emergency department if you develop further chest pain, palpitations, shortness of breath. Referrals: Liliana Cruz CNP [Primary Care Provider] - 05/05/17 9:15 am Jeffy Culver CNP [Advanced Practice Nurse] - Prescriptions: Atorvastatin [Lipitor] 40 mg PO HS #30 tablet Ciprofloxacin HCl/Dexameth [Ciprodex Otic Suspension] 7.5 ml OT BID 7 Days #1 bottle GuaiFENesin/Dextromethorphan [Mucinex Dm] 1 each PO BID PRN #30 tab.er.12h PRN Reason: Cough Metoprolol [Lopressor] 25 mg PO BID #60 tablet <Too Castle - Last Filed: 04/18/17 12:48> Date of Encounter: 04/18/17 - Attending Attestation I have personally performed a face to face evaluation on this patient. I have reviewed and agree with the care plan. History and Exam by me shows: 1. Paradoxical Atrial fib with RVR, now back in NSR, on increased metoprolol, will continue for now, low risk for hospital discharge, is on Xaralto for primary stroke risk reduction, continue with ASA 81 mg q d. 2. GERD - controlled on PPI 3. Morbid obesty, discussed lifestyle changes, weight loss goal 15 lbs over next 6 months. Too Castle, DO, Assessment and Plan Discussion w patient/family: The assessment and plan as outlined above was discussed with the patient and/or family members who expressed understanding and agreement. All questions were answered. Thank you for involving us in the care of your patient. Please call with any questions. History of Present Illness History of present illness: Ms. Galloway is a 51 year old female All Systems Review: A 10-system review of systems was performed and is negative for pertinent findings except as documented above in the HPI. Results 04/18/17 00:21 04/18/17 00:21 Lab Results 04/18/17 04/18/17 04/18/17 00:21 00:21 00:21 WBC 6.1 Hgb 11.9 Hct 35.9 Plt Count 233 Sodium 139 Potassium 3.7 Chloride 108 Carbon Dioxide 25 BUN 11 Creatinine 0.78 Glucose 119 H Calcium 8.9 Magnesium 2.3 Troponin I 0.00 04/18/17 06:23 WBC Hgb Hct Plt Count Sodium Potassium Chloride Carbon Dioxide BUN Creatinine Glucose Calcium Magnesium Troponin I 0.01
--- NOTE | 2017-04-18 11:54 | Discharge Summary ---
<Olivia Dorantes - Last Filed: 04/18/17 12:07> Date of Encounter: 04/18/17 Time of Encounter: 11:21 - Discharge Diagnosis (1) Atrial fibrillation with RVR Priority: Primary Status: Acute (2) CAD (coronary artery disease) Priority: Secondary Status: Chronic Qualifiers: Coronary Disease-Associated Artery/Lesion type: [place] artery [place] vs. transplanted heart: [place] heart Associated angina: angina presence unspecified Qualified Code(s): I25.10 - Atherosclerotic heart disease of [place] coronary artery without angina pectoris (3) Hyperlipidemia Priority: Secondary Status: Chronic Qualifiers: Hyperlipidemia type: unspecified Qualified Code(s): E78.5 - Hyperlipidemia , unspecified (4) Morbid obesity with BMI of 40.0-44.9, adult Priority: Secondary Status: Chronic (5) DVT prophylaxis Priority: Secondary Status: Acute - Discharge Medications Prescriptions: Atorvastatin [Lipitor] 40 mg PO HS #30 tablet Ciprofloxacin HCl/Dexameth [Ciprodex Otic Suspension] 7.5 ml OT BID 7 Days #1 bottle GuaiFENesin/Dextromethorphan [Mucinex Dm] 1 each PO BID PRN #30 tab.er.12h PRN Reason: Cough Metoprolol [Lopressor] 25 mg PO BID #60 tablet Home Medications: Loratadine [Claritin] 10 mg PO DAILY 10/07/16 [History] Montelukast [Singulair] 10 mg PO HS 10/07/16 [History] Tramadol HCl [Ultram] 50 mg PO TID PRN 10/07/16 [History] Ranitidine HCl [Zantac] 150 mg PO BID 11/16/16 [History] Aspirin Enteric Coated [Aspirin EC] 81 mg PO DAILY #60 tablet.dr 11/20/16 [Rx] Rivaroxaban [Xarelto] 20 mg PO 1700 #30 tablet 11/20/16 [Rx] Methocarbamol [Robaxin] 500 mg PO Q8HR PRN 04/13/17 [History] Atorvastatin [Lipitor] 40 mg PO HS #30 tablet 04/18/17 [Rx] Ciprofloxacin HCl/Dexameth [Ciprodex Otic Suspension] 7.5 ml OT BID 7 Days #1 bottle 04/18/17 [Rx] GuaiFENesin/Dextromethorphan [Mucinex Dm] 1 each PO BID PRN #30 tab.er.12h 04/18 [Rx] Metoprolol [Lopressor] 25 mg PO BID #60 tablet 04/18/17 [Rx] [place]-3S/Dha/Epa/Fish Oil/D3 [Fish Oil Gummies] 2 each PO DAILY 04/18/17 [ History] Allergies/Adverse Reactions: 3 Allergy/AdvReac Type Severity Reaction Status Date / Time Penicillins [PCN] Allergy Itching Verified 04/17/17 17:51 morphine AdvReac Gastrointestinal Verified 04/17/17 17:51 Upset Date of admission: 04/17/17 19:36 Primary care physician: Liliana Cruz CNP Consults: 04/17/17 20:25 Consult to Cardiology [CONS] Routine Comment: Consulting Provider: Cardiology Viviane Reason for Consult: paroxysmal afib Call Completed: No - Patient Status Disposition: Home, Self-Care Condition: Good Functional capacity at discharge: independent ambulation Overall status at discharge: patient is progressing back to baseline - Discharge Instructions Instructions: Ciprofloxacin (By mouth), Metoprolol (By mouth), Atorvastatin ( By mouth), Atrial Fibrillation (DC) Follow Up With: Liliana Cruz CNP [Primary Care Provider] - 05/05/17 9:15 am Jeffy Culver CNP [Advanced Practice Nurse] - Additional Instructions: Follow up with PCP within one week of discharge follow up with cardiology outpatient. take all meds as prescribed. please return to emergency department if you develop further chest pain, palpitations, shortness of breath. - Diet and Activity Activity: increase activity as tolerated Diet: low fat, low cholesterol Hospital course: Ms. Galloway is a 51 year old female with PMHx of CAD, Afib(on metoprolol and xarelto) asthma, CAD, GERD, HTN, kidney stones. patient arrived to [facility] on 04/17 with chief complaint if shortness of breath and elevated HR. She was found to be in AFib RVR and admitted for further workup. HR was in 140s upon admission. patient states that recently she has been having nausea, vomiting, diarrhea, fever, chills with viral URI recently. TSH was found to be normal. CXR showed no acute process. patient was started on cardizem gtt and converted to sinus rhythm. Her home dose of her beta bethany was increased and patient tolerated this increased dose well. patient was stable throughout the course of her hospital stay and was stable upon discharge. patient was evaluated by cardiology, and they recommended going up on her metoprolol dose with close outpatient follow up. she was discharged on guanfenacin, ear drops for her otitis externa, metoprolol. Plan: Follow up with PCP within one week of discharge follow up with cardiology outpatient. take all meds as prescribed. please return to emergency department if you develop further chest pain, palpitations, shortness of breath. - Time Spent with Patient Total time spent providing and/or coordinating discharge services: - Constitutional Vitals: Temp Pulse Resp BP Pulse Ox 97.8 F 63 12 109/71 96 04/18/17 07:49 04/18/17 07:49 04/18/17 07:49 04/18/17 07:49 04/18/17 07:49 General appearance: Present: cooperative, A&O X 3, morbidly obese, no acute distress, answers questions appropriately Exam: obese - Head Head exam: Present: atraumatic, normocephalic Additional comments: ear exam: bilateral tympanic membranes appeared normal, but significant redness noted in the external ear canal. - Neck Neck exam general surgery: Present: supple, trachea midline - Respiratory Respiratory exam: Present: CTAB - Cardiovascular Cardiovascular exam: Present: RRR, +S1, +S2 - GI/Abdominal GI/Abdominal exam: Present: normal bowel sounds, soft. Absent: distended, tenderness - Extremities Exam Extremities exam: Absent: cyanotic, pedal edema - Neurological Exam Neurological exam: Present: alert, oriented X3, no focal deficits - Psychiatric Psychiatric exam: Present: normal affect, normal mood <Emre Quijano - Last Filed: 04/18/17 16:28> Date of Encounter: 04/18/17 Procedures/tests Complete & Pending: Procedures Performed prior 72 hours Category Date Time Status ECG 12 lead ECG [ECG] Routine Y 04/17/17 19:28 Completed Date of admission: 04/17/17 19:36 Primary care physician: Liliana Cruz CNP Consults: 04/17/17 20:25 Consult to Cardiology [CONS] Routine Comment: Consulting Provider: Cardiology Viviane Reason for Consult: paroxysmal afib Call Completed: No Hospital course: Ms. Galloway is a 51 year old female - Time Spent with Patient Total time spent providing and/or coordinating discharge services: - Constitutional Vitals: Temp Pulse Resp BP Pulse Ox 97.8 F 63 12 109/71 96 04/18/17 07:49 04/18/17 07:49 04/18/17 07:49 04/18/17 07:49 04/18/17 07:49 - Attending Attestation time spent on this discharge : 40 I examined this patient and my medical decision-making was reviewed with the Resident Physician. I agree with the documented findings, disposition and treatment plan as described except to the extent set forth below.
--- NOTE | 2017-04-18 13:09 | Electrocardiograph Report ---
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
--- NOTE | 2017-04-18 15:38 | Electrocardiograph Report ---
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
[2017-04-18] MEDS ORDERED: *HR* Rivaroxaban 10 MG TABLET PO SCH (17:00)
== END 2017-04-18 13:21 | disposition home or self-care (01) ==
LOC: 2NENU 17:47 → EMEROO 17:47 → 2NENU 19:58
PROVIDERS: ADMIT Internal Medicine; ATTEND Internal Medicine